=== PATIENT | female | born 1955 | race Caucasian/White ===

== ENCOUNTER 2022-09-06 11:11 | Outpatient (CLI) | payer MEDICARE, SELFPAY ==
[2022-09-06 20:37] LABS: Thyroid Stimulating Hormone Reflex 0.574 uIU/mL (0.465-4.68)
[2022-09-06 20:54] LABS: Alanine Aminotransferase 14 U/L (6-35); Albumin Level 4.3 g/dL (3.5-5.1); Alkaline Phosphatase 60 U/L (38-126); Anion Gap 6 mmol/L (8-16); Aspartate Amino Transferase 24 U/L (14-36); Bilirubin,Total 0.4 mg/dL (0.2-1.3); Blood Urea Nitrogen 12 mg/dL (7-17); Calcium 8.9 mg/dL (8.4-10.2); Carbon Dioxide 28 mmol/L (22-30); Chloride 106 mmol/L (98-107); Cholesterol 256 mg/dL (0-200); Estimated Glomerular Filt Rate > 60; Glucose 101 mg/dL (65-110); HDL Direct 68 mg/dL; Potassium 4.6 mmol/L (3.4-5.0); Sodium 140 mmol/L (137-145); Triglycerides 110 mg/dL (<150)
[2022-09-06 21:05] LABS: LDL Cholesterol Direct 143 mg/dL
== END 2022-09-06 11:12 | disposition home or self-care (01) ==
LOC: ANHGOSHLAB 11:13
PROVIDERS: PCP Family Medicine; Visit Provider Family Medicine
DX: Z13.228 Encounter for screening for other metabolic disorders (principal); E78.5 Hyperlipidemia, unspecified; Z13.29 Encounter for screening for other suspected endocrine disorder
CPT/HCPCS: 36415; 80053; 80061; 84443

== ENCOUNTER → 2022-10-14 10:48 | Outpatient (CLI) | payer MEDICARE, MEDICAID, SELFPAY ==
--- NOTE | ~2022-10-14 | DEXA_ITS ---
Bone Density Report Name: RODNEY MORROW Age: 67 Sex: Female Ethnicity: White Date of : 1955 Indication: postmenopausal; screening for osteoporosis; height loss; prior fracture; Referring Provider: SHANDA RUIZ Study: Bone densitometry was performed. Exam Date: October 14, 2022 Accession number: [id number] Bone Density: Region BMD T-score Z-score Classification AP Spine (L1-L4) 0.917 -1.2 0.7 Osteopenia Femoral Neck (Left) 0.686 -1.5 0.1 Osteopenia Total Hip (Left) 0.801 -1.2 0.1 Osteopenia Femoral Neck (Right) 0.606 -2.2 -0.6 Osteopenia Total Hip (Right) 0.794 -1.2 0.1 Osteopenia Total Hip Mean 0.798 -1.2 0.1 Osteopenia World Health Organization criteria for BMD impression classify patients as: Normal (T-score at or above -1.0), Osteopenia (T-score between -1.0 and -2.5), or Osteoporosis (T-score at or below -2.5). 10-year Fracture Risk(1): Major Osteoporotic Fracture 20% Hip Fracture 5.4% Reported Risk Factors: [place] (), Neck BMD=0.606, BMI=28.0, previous fracture, smoking (1) FRAX(R) Version 3.08. Fracture probability calculated for an untreated patient. Fracture probability may be lower if the patient has received treatment. Clinical Information Provided by Patient: Has had a low trauma fracture Smokes Has used the following medications: Vitamin D Patient maximum height was 62 Menopause Age: 42 No regular weight bearing exercise Does not regularly consume dairy products Drinks caffeinated beverages Onset of menses at age 12 Number of children 4 Impression: The patient has low bone mass, based on the Right Femoral Neck T-score. The patient has an estimated ten-year risk of hip fracture of 5.4% and an estimated ten-year risk of major fracture of 20%, based on the WHO FRAX algorithm. The patient has risk factors, including: smoking, previous fracture. Discussion: BONE DENSITY IS LOW AT ONE OR MORE SKELETAL SITES. THE PATIENT'S BMD AND CLINICAL RISK FACTORS CONTRIBUTE TO THIS PATIENT'S HIGH RISK OF FRACTURE. This patient's lowest T-score is low at one or more skeletal sites. It meets the World Health Organization's (WHO) criteria for ?low bone mass? (T-score between -1.0 and -2.5). The patient's 10-year risk of hip fracture and 10 year risk of a major osteoporotic fracture as calculated by FRAX exceeds the threshold where pharmacological therapy is recommended by the National Osteoporosis Foundation (NOF). However, all treatment decisions require clinical judgment and consideration of individual patient factors, including patient preferences, comorbidities, previous drug use, risk factors not captured in the FRAX model (e.g., frailty, falls, vitamin D deficiency, increased bone turnover, interval significant decline in bone density) and possible under or overe
--- NOTE | ~2022-10-14 | CT_ITS ---
EXAMINATION: CT lung screening DATE: 10/14/2022 11:26 INDICATION: Greater than 40 pack-year history. Personal history of tobacco dependence. TECHNIQUE: Computed tomography (CT) of the chest was performed without intravenous contrast. The dose -length product was 83.11 mGy-cm. Automated exposure control and iterative reconstruction technique w ere employed. COMPARISON: None FINDINGS: There is atherosclerosis of the aorta and coronary arteries. No thoracic lymphadenopathy. S mall hiatal hernia. No significant pleural or pericardial effusion. There is emphysema. There is a pl eural-based 8 mm right apical nodule. There is a 2 mm right upper lobe nodule. There is a 3 mm left l ower lobe nodule, image 73. There is a 3 mm fissural nodule on the right, image 63. There is a 2 mm n odule of the right upper lobe. There are 2 adjacent 3 mm nodules in the left lower lobe. Moderate tho racic spondylosis. There is a chronic superior endplate compression fracture of T11. No suspicious ly tic or blastic lesions. IMPRESSION: 1. Lung Rads category 4A, suspicious. Follow-up low dose CT chest in 3 months or PET/CT scan is recom mended. Reviewed, dictated and finalized at location A. R INSTALLER IMPRESSION: 1. Lung Rads category 4A, suspicious. Follow-up low dose CT chest in 3 months o r PET/CT scan is recommended.
== END ==
PROVIDERS: PCP Family Medicine; Visit Provider Family Medicine
DX: Z12.2 Encounter for screening for malignant neoplasm of respiratory organs (principal); M81.0 Age-related osteoporosis without current pathological fracture; Z87.891 Personal history of nicotine dependence; M85.88 Other specified disorders of bone density and structure, other site; M85.852 Other specified disorders of bone density and structure, left thigh; M85.851 Other specified disorders of bone density and structure, right thigh; R91.8 Other nonspecific abnormal finding of lung field
CPT/HCPCS: 71271; 77080

== ENCOUNTER 2023-01-26 11:46 | Outpatient (CLI) | payer MEDICARE, MEDICAID, SELFPAY ==
--- NOTE | ~2023-01-26 | PE_ITS ---
EXAMINATION: PET skull to mid thigh DATE: 01/26/2023 13:41 INDICATION: Solitary pulmonary nodule. TECHNIQUE: Blood glucose level was 111 mg/dL. 11.201 mCi of 18-fluorodeoxyglucose (18-FDG) was admini stered i.v. Low dose computed tomography (CT) images were acquired from the base of the brain to the proximal thighs for attenuation correction and anatomic localization. Automated exposure control was employed. Dose-length product (DLP) was 488 mGy-cm. Positron emission tomography (PET) images were ac quired in the same distribution. COMPARISON: Head CT 10/14/2022 FINDINGS: Head/neck: There are no pathologically enlarged lymph nodes. Chest: There is mild scarring at the lung apices without increased activity. There is mild emphysema. There are a few scattered nodules in the lungs measuring up to 3 mm without increased activity. No p leural effusion. The heart size is normal. No pericardial effusion. There are coronary artery calcifi cations. Abdomen/pelvis/proximal thighs: The liver is normal. There are gallstones in the gallbladder, which i s normal in size. The spleen, pancreas, adrenal glands, and kidneys are normal. There are no dilated loops of bowel. There is diverticulosis of the colon without evidence of diverticulitis. The appendix is normal. There is calcified atherosclerosis of the aorta and many of the other arteries. There are no pathologically enlarged lymph nodes. There is no free intraperitoneal fluid. There is a supraumbi lical ventral hernia containing fat. There is no osseous malignancy. IMPRESSION: 1. Lung-RADS category 2: Benign appearance or behavior. Continue annual screening with noncontrast lo w-dose chest CT in 12 months. Reviewed, dictated and finalized at location A. IMPRESSION: 1. Lung-RADS category 2: Benign appearance or behavior. Continue annual screeni ng with noncontrast low-dose chest CT in 12 months.
[2023-01-26 12:16] LABS: Glucose Point of Care 111 mg/dl (65-105)
== END 2023-01-26 11:47 | disposition home or self-care (01) ==
PROVIDERS: PCP Family Medicine; Visit Provider Family Medicine
DX: R91.1 Solitary pulmonary nodule (principal)
CPT/HCPCS: 78815; A9552

== ENCOUNTER 2023-10-19 11:21 | Outpatient (CLI) | payer MEDICARE, MEDICAID, SELFPAY ==
[2023-10-19 19:25] LABS: Basophils Percent Auto 0.6 % (0.2-1.2); Eosinophils Percent Auto 0.4 % (0-4.4); Hematocrit 44.4 % (37.0-47.0); Hemoglobin 13.9 g/dL (12.0-15.0); Immature Granulocyte Absolute 0.01 K/mm3 (0.00-0.031); Immature Granulocyte Percent A 0.1 % (0-0.5); Lymphocytes Absolute Auto 0.98 K/mm3 (0.9-3.2); Lymphocytes Percent Auto 14.5 % (18.3-44.2); Mean Corpuscular HGB Conc 31.3 g/dl (32-36); Mean Corpuscular Hemoglobin 29.4 pg (26-34); Mean Corpuscular Volume 94.1 fl (80-100); Mean Platelet Volume 9.9 fl (7.4-10.4); Monocytes Absolute Auto 0.5 K/mm3 (0.1-0.6); Monocytes Percent Auto 7.3 % (2.6-8.5); Neutrophils Absolute Auto 5.2 K/mm3 (1.3-6.7); Neutrophils Percent Auto 77.1 % (45.5-73.1); Platelet Count Result 317 k/mm3 (150-375); Red Blood Count 4.72 M/mm3 (4.2-5.4); Red Cell Distribution Width 12.8 % (11.5-14.5); White Blood Count 6.8 K/mm3 (4.5-10.0)
[2023-10-19 19:29] LABS: Alanine Aminotransferase 16 U/L (6-35); Albumin Level 4.5 g/dL (3.5-5.1); Alkaline Phosphatase 75 U/L (38-126); Anion Gap 8 mmol/L (8-16); Aspartate Amino Transferase 39 U/L (14-36); Bilirubin,Total 0.8 mg/dL (0.2-1.3); Blood Urea Nitrogen 8 mg/dL (7-17); Calcium 9.7 mg/dL (8.4-10.2); Carbon Dioxide 28 mmol/L (22-30); Chloride 101 mmol/L (98-107); Cholesterol 219 mg/dL (0-200); Estimated Glomerular Filt Rate > 60; Glucose 95 mg/dL (65-110); HDL Direct 69 mg/dL; Potassium 3.8 mmol/L (3.4-5.0); Sodium 137 mmol/L (137-145); Triglycerides 174 mg/dL (<150)
[2023-10-19 19:40] LABS: LDL Cholesterol Direct 113 mg/dL
[2023-10-19 19:54] LABS: Iron 117 ug/dL (37-170)
[2023-10-19 20:04] LABS: Percent Iron Saturation 36 % (20-50)
[2023-10-19 20:27] LABS: Thyroid Stimulating Hormone Reflex 0.389 uIU/mL (0.465-4.68)
[2023-10-19 22:03] LABS: Free T4 Free Thyroxine Reflex 1.23 ng/dL (0.78-2.19)
[2023-10-19 22:45] LABS: Total Triiodothyronine (T3) 1.26 NG/ML (0.97-1.69)
== END 2023-10-19 11:22 | disposition home or self-care (01) ==
LOC: ANHGOSHLAB 11:23
PROVIDERS: PCP Family Medicine; Visit Provider Family Medicine
DX: Z13.29 Encounter for screening for other suspected endocrine disorder (principal); Z13.220 Encounter for screening for lipoid disorders; E78.5 Hyperlipidemia, unspecified; Z13.228 Encounter for screening for other metabolic disorders; R53.83 Other fatigue; D64.9 Anemia, unspecified
CPT/HCPCS: 36415; 80053; 80061; 82728; 83540; 83550; 84439; 84443; 84480; 85025

== ENCOUNTER 2024-01-31 00:27 | Day surgery (SDC) | payer MEDICARE, MEDICAID, SELFPAY ==
[2024-01-18 13:13] VITALS: BMI 29.3
[2024-01-31 09:48] VITALS: BP 125/78; PULSE 90; RESP 18; TEMP 35.9; O2SAT 96
[2024-01-31] MEDS: LACTATED RINGERS 1,000 ML 150 ML IV CONT (10:01)
--- NOTE | 2024-01-31 10:35 | WPDANESEPPF ---
Anes - Initial Pre Proc Eval Procedure: Operation Date: 01/31/24 11:00 Proposed Procedures p Colonoscopy - Darwin Piña MD Date/Time: 01/31/24 10:35 Surgeon: Darwin Piña MD Pre Op Diagnosis: other fecal abnormalities Patient Data Age: 68 Gender: F Height: 1.55 m Weight: 66.8 kg Last Vital Signs Temp 96.7 F L 01/31/24 09:48 Pulse 90 01/31/24 09:48 Resp 18 01/31/24 09:48 BP 125/78 01/31/24 09:48 Pulse Ox 96 01/31/24 09:48 O2 Del Method Room Air 01/31/24 09:48 Allergies Allergy/AdvReac Type Severity Reaction Status Date / Time No Known Allergies Allergy Verified 01/31/24 09:47 Home Medications Medication Instructions Recorded Confirmed Type cariprazine 1.5 mg capsule 1.5 mg PO DAILY 09/06/22 01/18/24 History (Vraylar) calcium carbonate (Calcium 500) 1,200 mg PO DAILY 01/05/23 01/18/24 History pravastatin 80 mg tablet 80 mg PO DAILY #90 tabs 09/04/23 01/18/24 Rx lamotrigine 25 mg tablet 75 mg PO BID 10/19/23 01/18/24 History nitrofurantoin macrocrystal 100 mg 100 mg PO QHS #90 caps 10/19/23 01/18/24 Rx capsule paroxetine HCl 20 mg tablet (Paxil) 30 mg PO DAILY 10/19/23 01/18/24 History trazodone 100 mg tablet 200 mg PO HS PRN Insomnia 01/18/24 01/18/24 History Patient hx anesthesia problems: none Family hx anesthesia problems: none Results Review: All pre-operative results and documents have been reviewed as part of the pre-operative evaluation. [facility] Past Medical History Medical History Anxiety Arthritis COPD (chronic obstructive pulmonary disease) DDD (degenerative disc disease) DJD (degenerative joint disease) Major depressive disorder Surgical History Surgical History History of ankle surgery History of tonsillectomy Family History Family History Mother Diabetes mellitus Grandparent Diabetes mellitus Hypertension Heart disease Cerebrovascular accident Social History Social History Smoking status: Current every day smoker Tobacco type: e-cigarettes/vaping Alcohol intake: never Substance use: never Substance use type: does not use Lack of Transportation: No Lack of Food: Never True Current Housing: I Have Housing Concerned About Future Housing: No Difficulty Paying Gas/Electric Bills: No Difficulty Paying for Meds: No Education: High School Diploma/GED Difficulty w/ Childcare or Family Care: No Living arrangements: alone Occupation/Education: retired Gender identity (if verbalized by the patient): Female Sexual Orientation (if Verbalized by the Patient): Straight or Heterosexual Agree to blood products: Yes Anes - Eval Final PreProcedure Day of Procedure 01/31/24 10:35 Patient weight: normal Heart: regular rate and rhythm Lungs: clear to auscultation Airway: Mallampati scale class II Neurological: alert and oriented Last oral intake: >/= 8 hours ASA classification: III Emergent: no Anesthetic plan: proceed Anesthesia type and monitoring: general GIVS and standard monitoring Results Review: All pre-operative results and documents have been reviewed as part of the pre-operative evaluation. Informed Consent: The patient's anesthetic plan and its attendant risks and benefits were discussed with the patient/family/POA. Questions were solicited and answers provided to the satisfaction of the patient/family/POA.
--- NOTE | 2024-01-31 10:48 | PM.HPGS ---
History of Present Illness History of Present Illness Consent: Risks, benefits, and alternatives have been discussed and questions answered. Patient agrees to proceed with procedure. Chief complaint: other fecal abnormalities Narrative: Lottie Paz is a 68 year old female here for first colonoscopy, had + cologuard Review of Systems Review of Systems: All systems reviewed & are unremarkable except as noted in HPI and below PMFSH Past Medical History Medical History (Updated 01/31/24 @ 10:49 by Darwin Piña MD) Anxiety Arthritis COPD (chronic obstructive pulmonary disease) DDD (degenerative disc disease) DJD (degenerative joint disease) Major depressive disorder Positive colorectal cancer screening using Cologuard test Surgical History Surgical History History of ankle surgery History of tonsillectomy Family History Family History Mother Diabetes mellitus Grandparent Diabetes mellitus Hypertension Heart disease Cerebrovascular accident Social History Social History Smoking status: Current every day smoker Tobacco type: e-cigarettes/vaping Alcohol intake: never Substance use: never Substance use type: does not use Lack of Transportation: No Lack of Food: Never True Current Housing: I Have Housing Concerned About Future Housing: No Difficulty Paying Gas/Electric Bills: No Difficulty Paying for Meds: No Education: High School Diploma/GED Difficulty w/ Childcare or Family Care: No Living arrangements: alone Occupation/Education: retired Gender identity (if verbalized by the patient): Female Sexual Orientation (if Verbalized by the Patient): Straight or Heterosexual Agree to blood products: Yes Meds Home Medications and Allergies Home Medications Medication Instructions Recorded Confirmed Type cariprazine 1.5 mg capsule 1.5 mg PO DAILY 09/06/22 01/18/24 History (Vraylar) calcium carbonate (Calcium 500) 1,200 mg PO DAILY 01/05/23 01/18/24 History pravastatin 80 mg tablet 80 mg PO DAILY #90 tabs 09/04/23 01/18/24 Rx lamotrigine 25 mg tablet 75 mg PO BID 10/19/23 01/18/24 History nitrofurantoin macrocrystal 100 mg 100 mg PO QHS #90 caps 10/19/23 01/18/24 Rx capsule paroxetine HCl 20 mg tablet (Paxil) 30 mg PO DAILY 10/19/23 01/18/24 History trazodone 100 mg tablet 200 mg PO HS PRN Insomnia 01/18/24 01/18/24 History Allergies Allergy/AdvReac Type Severity Reaction Status Date / Time No Known Allergies Allergy Verified 01/31/24 09:47 Vital Signs Vital Signs - 24 hr 01/31/24 09:48 Temperature 96.7 F L Pulse Rate 90 Respiratory Rate 18 Blood Pressure 125/78 Pulse Oximetry 96 Oxygen Delivery Room Air Exam Const: General: comfortable and no acute distress HENMT: Face/Nose/Sinus: Normal nares present Eyes: General: appearance normal, both eyes and all related structures Neck: Neck: no JVD Resp: Auscultation: clear to auscultation bilaterally Cardio: Rate: regular rate Rhythm: regular rhythm GI: Inspection: non-distended GI Palp: Yes Soft to palpation Skin: General skin exam: normal color Neuro: General: gait normal Speech: normal speech Extrem: General: normal to inspection Psych: Mental Status: mental status grossly normal Assessment and Plan Assessment and plan (1) Positive colorectal cancer screening using Cologuard test: Code(s): R19.5 - Other fecal abnormalities Status: Acute Assessment and Plan: colonoscopy
[2024-01-31 11:46] VITALS: BP 116/77; PULSE 74; RESP 23; O2SAT 99
[2024-01-31 11:55] VITALS: BP 119/65; PULSE 80; RESP 21; O2SAT 98
[2024-01-31 12:05] VITALS: BP 141/78; PULSE 67; RESP 22; O2SAT 99
== END 2024-01-31 12:14 | disposition home or self-care (01) ==
PROVIDERS: PCP Family Medicine; Visit Provider Internal Medicine Gastroenterology
PROC: 0DJD8ZZ Inspection of Lower Intestinal Tract, Via Natural or Artificial Opening Endoscopic (ICD-10-PCS; CPT 45378; principal; 2024-01-31 11:00)
DX: D12.2 Benign neoplasm of ascending colon (principal); D12.3 Benign neoplasm of transverse colon; D12.4 Benign neoplasm of descending colon; D12.5 Benign neoplasm of sigmoid colon; K57.30 Diverticulosis of large intestine without perforation or abscess without bleeding; K64.8 Other hemorrhoids; J44.9 Chronic obstructive pulmonary disease, unspecified; F32.9 Major depressive disorder, single episode, unspecified; F41.9 Anxiety disorder, unspecified; F17.290 Nicotine dependence, other tobacco product, uncomplicated
CPT/HCPCS: 45381; 45385; 88305; J2704; J7120

== ENCOUNTER 2024-11-26 10:49 | Outpatient (CLI) | payer MEDICARE, MEDICAID, SELFPAY ==
--- OUTSIDE RECORDS SUMMARY | 2024-11-26 12:03 | XMS_ITS | Clinical Summary ---
Author Organization [facility] Address [address] [place] [id number] Care Team Providers Care Owner Operator Name Role Phone Unavailable Primary Care Provider Unavailabl e Social History Tobacco Use Types Packs/Day Years Used Date Smoking Tobacco: Never Assessed Comments Unknown Sex and Gender Information Value Date Recorded Sex Assigned at Not on file Legal Sex Female 5:35 PM CDT Gender Identity Not on file Sexual Orientation Not on file Plan of Treatment Health Maintenance Due Date Last Done Comments Colorectal Cancer Screening Colonoscopy (10 Years) 1955 Hepatitis C 1974 DTaP, Tdap and Td Vaccines ( 1 - Tdap) 1975 Mammogram Screening 1996 Zoster Vaccines (1 of 2) 2006 Dexa Scan (General) 2021 Pneumococcal Vaccine: 65+ Ye ars (1 of 1 - PCV) 2021 COVID-19 Vaccine (2023-2 5 season) 2024 Influenza Adult (#1) 2024 RSV Immunization or 60+ Years (1 - 1-dose 75+ series) 2031 Meningococcal B Vaccine Aged Out No l onger eligible based on patient's age to complete this topic Meningococcal Vaccine Aged Out No latrice ashley eligible based on patient's age to complete this topic RSV Immunizations Under 20 Months Aged Out No longer eligible based on patient's age to complete this topic
--- OUTSIDE RECORDS SUMMARY | 2024-11-26 12:03 | XMS_ITS | Clinical Summary ---
Author Organization [facility] Address [address] [place] [address] Care Team Providers Care Organizational Development Specialist Name Role Phone Mariah River MD Primary Care Prov ider Source Comments [facility],non-owned Affiliates and Associated Physician Practices is amultiple site organization consisting of ambulatory clinics and hospital sitesin [place], [place], [place] and [place]. This disclosure is being madepursuant to the Care Everywhere program and may not contain all information available regarding this patient. Last updated 18.[facility] Allergies No known active allergies Medications * Be aware that medications may not be up to date on this document. Alwaysverify current medications with the patient. Medication Sig Dispensed Refills Start Date End Date Status Cholecalciferol (VITAMIN D HIGH POTENCY PO) Take 2,000 Units by mouth Active ETODOLAC PO Active HYDROXYZINE HCL PO Active VENLAFAXINE HCL ER PO Act grace Tiotropium [place] Monohydrate (SPIRIVA RESPIMAT IN) Active Albuterol Sulfate (VENTOLIN HFA IN) Active fluticasone propionate (FLONASE) 50 MCG/ACT nasal sprayIndications:Dispatcher Relay tyson frontal sinusitis [employer] 2 Sprays into each nostril once daily 1 Bottle 1 06/15/2016 Active pregabalin (LYRICA) 300 MG capsule Take 300 mg by mouth 3 times daily Active meloxicam (MOBIC) 15 MG tablet Take 15 mg by mouth once daily Active ARIPiprazole (ABILIFY PO) Active Docusate Sodium (COLACE PO) Active polyethylene glycol 3350 (MIRALAX) powder Take 17 g by mouth once daily Active pravastatin (PRAVACHOL) 80 MG tablet Take 80 mg by mouth at bedtime Active benzonatate (TESSALON) 200 MG capsule Take 1 capsule by mouth 3 times daily as needed for Cough 30 capsule 07/19/2019 Active Active Problems Problem Noted Date Diagnosed Date Shoulder pain, left 11/17/2015 Social History Tobacco Use Types Packs/Day Years Used Date Smoking Tobacco: Some Days Smokeless Tobacco: Never Sex and Gender Information Value Date Recorded Sex Assigned at Not on file Gender Identity Not on file Sexual Orientation Not on file Last Filed Vital Signs Vital Sign Reading Time Taken Comments Blood Pressure 122/72 08/02/2019 5:44 PM SERVICE MANAGER Pulse 90 08/02/2019 5:44 PM SERVICE MANAGER Temperature 37.1 C (98.7 F) 08/02/2019 5:44 PM SERVICE MANAGER Respiratory Rate 16 08/02/2019 5:44 PM SERVICE MANAGER Oxygen Saturation 98% 08/02/2019 5:44 PM SERVICE MANAGER Inhaled Oxygen Concentration - - Weight 72.6 kg (160 lb) 08/02/2019 5:44 PM SERVICE MANAGER Height 157.5 cm (5' 2 ) 08/02/2019 5:44 PM SERVICE MANAGER Body Mass Index 29.26 08/02/2019 5:44 PM SERVICE MANAGER Plan of Treatment Health Maintenance Due Date Last Done Comments BONE DENSITY TESTING 1955 COLOGUARD (AGES 45-75) - COL ON CA SCREENING 1955 COLON MONITORING 1955 COLONOSCOPY - COLON CA SCREENING 1956 CT COLONOGRAPHY - COLON CA SCREENING 1955 Colorectal Cancer Screening 1955 FIT - COLON CA SCREENING 1955 FLEX SIG - COLON CA SCREENING 1955 MAMMOGRAM 1955 HEPATITIS C SCREENING 04/13/1974 DTAP/TDAP/TD VACCINES (1 - Tdap) 1975 PNEUMOCOCCAL VACCINE 50+ (1 of 2 - PCV) 1975 ZOSTER VACCINE (1 of 2) 2006 SCREENING FOR DIABETES 08/08/2018 COVID-19 VACCINE ( - 2023-2 5 season) 2024 INFLUENZA VACCINE (#1) 2024 DEPRESSION SCREENING 08/28/2024 MEDICARE AWV CALENDAR YEAR 2024 Respiratory Syncytial Virus (RSV) Vaccine Pt: or over 60 yrs (1 - 1-dose 75+ series) 2031 HEPATITIS B VACCINE Aged Out No longe r eligible based on patient's age to complete this topic HIB VACCINE Aged Out No longer eligi ble based on patient's age to complete this topic HPV VACCINE Aged Out No longer eligi ble based on patient's age to complete this topic MENINGOCOCCAL (Group B) VACC INE SHARED DECISION-MAKING Aged Out No longer eligibl e based on patient's age to complete this topic MENINGOCOCCAL GROUPS A/C/Y/W VACCINE Aged Out No longer eligible b ased on patient's age to complete this topic Care Teams Organizational Development Specialist Relationship Specialty Start Date End Date Mariah River MD PCP - General Student Resident 11/16/15
--- OUTSIDE RECORDS SUMMARY | 2024-11-26 12:03 | XMS_ITS ---
Author Name [facility] Address [address] [place], [place] Phone Organization [facility] Address [address] [place] [address] Phone Care Team Providers Care Rotary Furnace Tender Name Role Phone [facility] Unavailable [phone] YARED RAGLAND Unavailable WOODYCANDIDO Unavailable CALEB GRAY Unavailable ALLERGIES, ADVERSE REACTIONS AND ALERTS Allergy Name Allergy Date Allergy Status Allergy Severity Allergy Reaction NO KNOWN DRUG ALLERGIES MEDICATIONS RxNorm Brand Name Prescription Ordered Value Order Unit Start Date Date Status Fill Status Indications [id number] Vraylar 3 mg capsule SIG: Vraylar 3 mg oral capsule, 0 days, Dispense #1 Capsule, 0 Refills, Directions: DIRECTED 1 capsule 2022 Current [id number] pravasta tin 10 mg tablet SIG: pravastatin 10 mg oral tablet, 0 days, Dispense #1 Tablet, 0 Refills, Directions: DIRECTED 1 tablet 2022 Current [id number] amitript yline 10 mg tablet SIG: amitriptyline 10 mg oral tablet, 0 days, Dispense #1 Tablet, 0 Refills, Directions: DIRECTED 1 tablet 2022 Current Actical capsule SIG: Actical oral capsule, 0 days, Dispense #1 Capsule, 0 Refills, Directions: DIRECTED 1 capsule 2022 Current [id number] Flonase Allergy Relief 50 mcg/actu ation spray,saab spension SIG: Flonase Allergy Relief 50 mcg/actuation nasal spray,suspensi on, 0 days, Dispense #9.9 Milliliter, 0 Refills, Directions: DIRECTED 9.9 spray,s uspensi on 2022 Current [id number] Cholecal DF 95 mcg (3,800 unit)-1 mg tablet SIG: Cholecal DF 95 mcg (3,800 unit)-1 mg oral tablet, 0 days, Dispense #1 Tablet, 0 Refills, Directions: DIRECTED 1 tablet 2022 Current [id number] cephalex in 500 mg capsule SIG: cephalexin 500 mg oral capsule, 7 days, Dispense #14 Capsule, 0 RefillsDirecti ons: Take 1 oral capsule 2 times a day 14 capsule 2022 023 Historic [id number] ciproflo xacin-de xamethas one 0.3-0.1 % drops,saab spension SIG: ciprofloxacin- dexamethasone 0.3-0.1 % otic (ear) drops,suspensi on, 7 days, Dispense #1 Milliliter, 0 RefillsDirecti ons: 4 drops R ear 2 times a day 1 drops,s uspensi on 2022 023 Historic [id number] naproxen 500 mg tablet SIG: naproxen 500 mg oral tablet, 10 days, Dispense #20 Tablet, 0 RefillsDirecti ons: Take 1 oral tablet 2 times a day 20 tablet 2022 023 Historic [id number] polymyxi n B sulf-tri methopri m 10,000 unit- 1 mg/mL drops SIG: polymyxin B sulf-trimethop rim 10,000 unit- 1 mg/mL ophthalmic (eye) drops, 0 days, Dispense #10 Milliliter, 0 Refills, Directions: 1 drop R ear every 3 hours while awake 10 drops 2022 Current [id number] ofloxaci n 0.3 % drops SIG: ofloxacin 0.3 % otic (ear) drops, 7 days, Dispense #30 Milliliter, 0 RefillsDirecti ons: instill 10 drops daily x 7 days to affected ear 30 drops 2022 Current [id number] cephalex in 500 mg capsule SIG: cephalexin 500 mg oral capsule, 7 days, Dispense #14 Capsule, 0 RefillsDirecti ons: Take 1 oral capsule 2 times a day 14 capsule 2022 023 Historic [id number] phenazop yridine 200 mg tablet SIG: phenazopyridin e 200 mg oral tablet, 7 days, Dispense #21 Tablet, 0 RefillsDirecti ons: Take 1 oral tablet 3 times a day 21 tablet 2022 023 Historic [id number] sulfamet hoxazole -trimeth oprim 800-160 mg tablet SIG: sulfamethoxazo le-trimethopri m 800-160 mg oral tablet, 7 days, Dispense #14 Tablet, 0 RefillsDirecti ons: Take 1 oral tablet 2 times a day X 7 days 14 tablet 2022 Current [id number] amoxicil ava 875 mg tablet SIG: amoxicillin 875 mg oral tablet, 7 days, Dispense #14 Tablet, 0 RefillsDirecti ons: Take 1 oral tablet 2 times a day 14 tablet 2022 Current [id number] clindamy mehran HCl 150 mg capsule SIG: clindamycin HCl 150 mg oral capsule, 7 days, Dispense #42 Capsule, 0 RefillsDirecti ons: Take 2 oral capsules 3 times a day 42 capsule 2022 024 Historic [id number] neomycin -polymyx in-HC 3.5-10,0 00-1 mg/mL-un it/mL-% drops,saab spension SIG: neomycin-polym yxin-HC 3.5-10,000-1 mg/mL-unit/mL- % otic (ear) drops,suspensi on, 7 days, Dispense #10 Milliliter, 0 RefillsDirecti ons: 1 drop L ear every 3 hours while awake 10 drops,s uspensi on 2022 024 Historic [id number] Macrobid 100 mg capsule SIG: Macrobid 100 mg oral capsule, 7 days, Dispense #14 Capsule, 0 RefillsDirecti ons: Take 1 oral capsule 2 times a day 14 capsule 2023 Current [id number] ofloxaci n 0.3 % drops SIG: ofloxacin 0.3 % ophthalmic (eye) drops, 7 days, Dispense #10 Milliliter, 0 Refills, Directions: 2 drops right eye 4 times a day 10 drops 2023 024 Historic [id number] Cipro 500 mg tablet SIG: Cipro 500 mg oral tablet, 5 days, Dispense #10 Tablet, 0 Refills, Directions: Take 1 oral tablet 2 times a day 10 tablet 2023 024 Historic [id number] cephalex in 500 mg capsule SIG: cephalexin 500 mg oral capsule, 7 days, Dispense #14 Capsule, 0 Refills, Directions: Take 1 oral capsule 2 times a day 14 capsule 2023 024 Historic PROBLEMS Problem Code Problem Description Problem Status Problem Da te Problem End Date [id number]-Oijbd anxiety and depressive disorder Mixed anxiety and depressive disorder Current 12/23/2022 [id number]-Ysfcjdbus esterolemia Hypercholesterolemia Current 12/23/2022 [id number]-Kxcryfio Insomnia Current 12/23/2022 [id number]-Lmnbdo of lung Nodule of lung Current 12/23/2022 [id number]-Yinufptg ctomy Tonsillectomy Current 08/17/2023 [id number]-Njcdpzi obstructive lung disease Chronic obstructive lung disease Current 08/17/2023 [id number]-Fxztrjcmi py Colonoscopy Current 02/11/2024 PROCEDURES Procedure Description Date Notes NO PROCEDURES PERFORMED ASSESSMENTS Assessment None PLAN OF TREATMENT Assessment Planned Activity LOINC Planned Renaldo e None CONSULTATION NOTE Note Author Date None HISTORY AND PHYSICAL NOTE Note Author Date None PROGRESS NOTE Note Author Date None DISCHARGE SUMMARY Note Author Date None CHIEF COMPLAINT AND REASON FOR VISIT FUNCTIONAL STATUS Functional or Cognitive Find ing None MENTAL STATUS Cognitive Finding None ENCOUNTERS Encounter Type Provider Diagnoses Start Date Location None SOCIAL HISTORY Social Status Observation Current Regular Smoker Sex:Female CARE TEAM INFORMATION Rotary Furnace Tender Provider ID Role Location Phone [facility] [address], [place], [place] YARED RAGLAND [phone] NURSE PRACTITIONER [facility], [place] [address] CANDIDO MCKAY [phone] NURSE PRACTITIONER [facility], [place] [address] CALEB GRAY [phone] NURSE PRACTITIONER [address], [place] [address]
--- OUTSIDE RECORDS SUMMARY | 2024-11-26 12:03 | XMS_ITS | CONTINUITY OF CARE DOCUMENT ---
Author Name maxx birgitjorge Address Unknown Organization [facility] Address [address] [place] [address] Phone [phone] Care Team Providers Care Camp Nurse Name Role Phone Anshu Hammer MD Unavailable [phone] STEPHANIE PERALTA DO Unavailable TIM SETH MD Unavailable PROBLEMS Condition Status Date Provider Notes EKG active Anshu Hammer MD Family History of Hypertension: active Judith Hammer MD Family History of CVA or Stroke: active Soledad Hammer MD Family History of Hypertension: active Judith Hammer MD Prediabetes active Anshu Hammer MD Hyperlipidemia active Anshu Hammer MD Tobacco abuse active Anshu Hammer MD COPD active Anshu Hammer MD Chronic pain active Anshu Hammer MD Chronic UTI active Anshu Hammer MD Edema, ankles, lateral surface of R ankle active 04/02 Anshu Hammer MD ENCOUNTERS Date Type Provider Location Encounter Diag nosis - In-person encounter Office Visit Anshu Hammer MD [facility] Edema, ankles, lateral surface of R ankle - In-person encounter Office Visit Anshu Hammer MD [facility] EKGFamily History of Hypertension:Family History of CVA or Stroke:Family History of Hypertension:Prediabetes HyperlipidemiaTobacco abuseCOPDChronic painChronic UTIEdema, ankles, lateral surface of R ankle VITAL SIGNS Date Observation Value Provider Body Mass Index (Ratio) 26.70 kg/m2 Judith Hammer MD respiratory rate E&M 16 /min Angie Noonan blood pressure, diastolic 81 mm[Hg] Cy caridad Noonan blood pressure, systolic 132 mm[Hg] Anum devanmark Noonan blood pressure, cuff size regular Cy ana liliamark Noonan oxygen saturation, oximetry 95 % Angie Noonan pulse rate 98 /min Angie Howardthomas ignacio weight E&M 146 [lb_av] Angiekanu Dupree height E&M 62 [in_i] Angie [facility] ignacio Body Mass Index (Ratio) 26.52 kg/m2 Judith Hammer MD blood pressure, diastolic 77 mm[Hg] To nsha Simons blood pressure, systolic 122 mm[Hg] Ton [facility] oxygen saturation, oximetry 98 % [facility] respiratory rate E&M 18 /min [facility] 103 [facility] weight E&M 145 [lb_av] [facility] height E&M 62 [in_i] [facility] blood pressure, resting No Tons julio Simons ALLERGIES No Known Drug Allergies HISTORY OF MEDICATION USE Medication Status Instructions Dates Provider Indications Com ments FLUOXETINE HCL 20 MG ORAL TABLET active take 1 tab at bedtime Angie Noonan GABAPENTIN 300 MG ORAL CAPSULE active take 1 tab at bedtime Angie Noonan TIZANIDINE HCL 4 MG ORAL TABLET active one tab daily Gertrudisnori Simons #90, 30 days supply, Filled 11/06/2019 PRAVASTATIN SODIUM 80 MG ORAL TABLET active one tab daily [facility] Simons #90, 90 days supply, Filled 12/06/2019 HYDROXYZINE HCL 25 MG ORAL TABLET active one tab daily Gloria Simons #30, 15 days supply, Filled 12/09/2019 ARIPIPRAZOLE 5 MG ORAL TABLET active one tab daily Gloria Simnos #30, 30 days supply, Filled 12/31/2019 SPIRIVA HANDIHALER 18 MCG INHALATION CAPSULE active Gloria Simons #30, 30 days supply, Filled 01/02/2020 TERBINAFINE HCL 250 MG ORAL TABLET active TK 1 T PO D Gloria Simons #42, 42 days supply, Prescribed by GUILLE DENNY, Filled 02/14/2020 VENLAFAXINE HCL ER 150 MG ORAL CAPSULE EXTENDED RELEASE 24 HOUR completed TAKE ONE CAPSULE BY MOUTH EVERY MORNING - Angie Noonan #30, 30 days supply, Prescribed by EUGENIA HARDY, Filled 03/10/2020 MELOXICAM 15 MG ORAL TABLET active TAKE ONE TABLET BY MOUTH ONCE DAILY Gloria Simons #30, 30 days supply, Prescribed by EUGENIA HARDY, Filled 03/10/2020 FLUTICASONE PROPIONATE 50 MCG/ACT NASAL SUSPENSION active SPRAY 2 SPRAYS INTO EACH NOSTRIL ONCE A DAY Gloria Simons #16, 30 days supply, Prescribed by EUGENIA HARDY, Filled 03/10/2020 DOXYCYCLINE MONOHYDRATE 100 MG ORAL CAPSULE active TAKE 1 CAPSULE BY MOUTH TWICE A DAY DIRECTED FOR 10 DAYS Gloria Simons #20, 10 days supply, Prescribed by SHANDA FULLER, Filled 03/12/2020 CEPHALEXIN 500 MG ORAL CAPSULE active TAKE 1 C BY ORAL [address] [place] 12 HOURS FOR 10 DAYS Gloria Simons #20, 5 days supply, Prescribed by MELLY CONNOLLY, Filled 03/18/2020 TRAMADOL HCL 50 MG ORAL TABLET active TAKE 1 TABLET BY MOUTH EVERY 6 HOURS NEEDED FOR PAIN Gloria Simons #30, 8 days supply, Prescribed by SHANDA FULLER, Filled 03/19/2020 BUSPIRONE HCL 15 MG ORAL TABLET active Gloria Simons #60, 30 days supply, Filled 03/25/2020 TRIAMCINOLONE ACETONIDE 0.025 % EXTERNAL OINTMENT active APPLY A THIN COAT TO THE AFFECTED AREA(S) TWICE A DAY Gloria Simons #15, 30 days supply, Prescribed by BRIANNE SETH, Filled 03/25/2020 MUPIROCIN 2 % EXTERNAL OINTMENT active apply twice daily Gloria Simons #22, 10 days supply, Filled 03/27/2020 SOCIAL HISTORY Date Observation Value Provider smoking/tobacco cess ation, patient education and counseling yes Anshu Hammer MD smoking status Current every day smoker U leanne Hammer MD social history E&M S moking History: P atient currently smokes every day. P atient has been counseled to quit. Anshu Hammer MD social history reviewed E&M revi ewed - no changes required Anshu Hammer MD smoking history, tot al pack/year 365 Angie Noonan smoking history, total pack/day 1 Angie Noonan cigarette use yes Angie garcia social history E&M S moking History: P atient currently smokes every day. P atient has been counseled to quit. Anshu Hammer MD social history reviewed E&M revi ewed - no changes required Anshu Hammer MD smoking/tobacco cess ation, patient education and counseling yes Anshu Hammer MD number of grandchildren Anshu Hammer MD U leanne Hammer MD smoking history, total pack/day 1 Tonsha Simons smoking history, tot al pack/year 365 Tonsha Simons cigarette use yes Tonsha Simons smoking status Current every day smoker T onsha Simons FAMILY HISTORY Family Member Condition Father Family History Unkno wn Maternal Grandmother Family History of C VA or Stroke: Mother Family History of Di abetes: Maternal Grandmother Family History of H ypertension: INSURANCE PROVIDERS Payer name Policy type / Coverage type Venetie red green party ID [facility] [facility] FAMILY [facility] Medicaid 1 [id number] [place] MED[place] Medicare [id number] ADVANCE DIRECTIVES Name Date DISCUSSED - NO DECISION MADE TREATMENT PLAN Date Name Performer Cardiology FOLLOW UP :The Patient was reencouraged to stop smoking. Anshu Hammer MD Cardiology FOLLOW UP :Very localized. DANDRE and Venous US were completly normal. Advised patient to continue to try to stop smoking and to take Gabapentin. There is no further need for testing. However will see her in 6 months to make sure nothing new occurs Anshu Hammer MD Cardiology FOLLOW UP : H er updated medication list for this problem includes: Pravastatin Sodium 80 Mg Oral Tablet (Pravastatin sodium) ..... One tab daily Anshu Hammer MD Cardiology FOLLOW UP Anshu cervantes MD Cardiology Anshu Hammer MD Cardiology:The Patie nt was reencouraged to stop smoking. Anshu Hammer MD Cardiology: H er updated medication list for this problem includes: Pravastatin Sodium 80 Mg Oral Tablet (Pravastatin sodium) ..... One tab daily Anshu Hammer MD Cardiology:swelling is localized on dorsal surface of R foot. Will obtain echo, DANDRE, standing Venous US. I have advised that she continue to wear compression when she can tolerate it. Anshu Hammer MD Date Name Venous Doppler Bilat eral LE - Reflux Arterial Duplex Bi-L ower EX Complete Echo HISTORY OF PROCEDURES Procedure Date Procedure Name Provider Procedure Notes S tatus EKG Anshu Hammer MD completed
[2024-11-26 14:02] LABS: Hemoglobin 12.9 g/dL (12.0-15.0); Mean Corpuscular HGB Conc 32.3 g/dl (32-36); Mean Corpuscular Hemoglobin 29.3 pg (26-34); Mean Corpuscular Volume 90.9 fl (80-100); Mean Platelet Volume 9.9 fl (7.4-10.4); Platelet Count Result 299 k/mm3 (150-375); Red Cell Distribution Width 13.2 % (11.5-14.5); White Blood Count 6.3 K/mm3 (4.5-10.0)
[2024-11-26 14:30] LABS: Alanine Aminotransferase 18 U/L (6-35); Albumin Level 4.2 g/dL (3.5-5.1); Alkaline Phosphatase 69 U/L (38-126); Anion Gap 8 mmol/L (4-12); Aspartate Amino Transferase 36 U/L (14-36); Bilirubin,Total 0.3 mg/dL (0.2-1.3); Blood Urea Nitrogen 14 mg/dL (7-17); Calcium 9.5 mg/dL (8.4-10.2); Carbon Dioxide 29 mmol/L (22-30); Chloride 99 mmol/L (98-107); Cholesterol 244 mg/dL (0-200); Estimated Glomerular Filt Rate > 60; Glucose 125 mg/dL (65-110); HDL Direct 61 mg/dL; Potassium 4.5 mmol/L (3.4-5.0); Sodium 136 mmol/L (137-145); Triglycerides 167 mg/dL (<150)
[2024-11-26 14:41] LABS: LDL Cholesterol Direct 134 mg/dL
[2024-11-26 14:58] LABS: Thyroid Stimulating Hormone 0.872 uIU/mL (0.465-4.680)
[2024-11-26 17:43] LABS: Hemoglobin A1C 6.3 % (<5.7)
== END 2024-11-26 10:50 | disposition home or self-care (01) ==
PROVIDERS: PCP Family Medicine; Visit Provider Family Medicine
DX: E78.5 Hyperlipidemia, unspecified (principal); R73.09 Other abnormal glucose; Z79.899 Other long term (current) drug therapy; E66.9 Obesity, unspecified; R53.83 Other fatigue
CPT/HCPCS: 36415; 80053; 80061; 83036; 84443; 85027

== ENCOUNTER 2025-03-20 10:35 | Outpatient (CLI) | payer MEDICARE, MEDICAID, SELFPAY ==
--- OUTSIDE RECORDS SUMMARY | 2025-03-20 10:39 | XMS_ITS | Clinical Summary ---
Author Organization [facility] Address [address] [place] [address] Care Team Providers Care Deputy Prosecuting Attorney Name Role Phone Unavailable Primary Care Provider [...] 1 - Tdap) 1975 Mammogram Screening 1996 Pneumococcal Vaccine: 50+ Ye ars (1 of 1 - PCV) 2006 Zoster Vaccines (1 of 2) 2006 Dexa Scan (General) 2021 COVID-19 Vaccine (2023-2 5 season) 2024 RSV Immunization or 60+ Years (1 [...]
--- OUTSIDE RECORDS SUMMARY | 2025-03-20 10:39 | XMS_ITS ---
Author Name [facility] Address [address] [place], [place] Phone Organization [facility] Address [address] [place] [address] Phone Care Team Providers Care Edge Dyer Name Role Phone [facility] Unavailable [phone] YARED RAGLAND Unavailable WOODYCANDIDO Unavailable CALEB GRAY Unavailable ALLERGIES, ADVERSE REACTIONS AND ALERTS Allergy Name Allergy Date Allergy Status Allergy Severity Allergy Reaction NO KNOWN DRUG ALLERGIES MEDICATIONS RxNorm Brand Name Prescription Ordered Value Order Unit Start Date Date Status Fill Status Indications [id number] Vraylar 3 mg capsule SIG: Vraylar 3 mg oral capsule, 0 days, Dispense #1 Capsule, 0 Refills, Directions: DIRECTED 1 capsule 2022 Current [id number] pravasta tin 10 mg tablet SIG: pravastatin 10 mg oral tablet, 0 days, Dispense #1 Tablet, 0 Refills, Directions: DIRECTED 1 tablet 2022 Current [id number] amitript yline 10 mg tablet SIG: amitriptyline 10 mg oral tablet, 0 days, Dispense #1 Tablet, 0 Refills, Directions: DIRECTED 1 tablet 2022 Current Actical capsule SIG: Actical oral capsule, 0 days, Dispense #1 Capsule, 0 Refills, Directions: DIRECTED 1 capsule 2022 Current [id number] Flonase Allergy Relief 50 mcg/actu ation spray,saab spension SIG: Flonase Allergy Relief 50 mcg/actuation nasal spray,suspensi on, 0 days, Dispense #9.9 Milliliter, 0 Refills, Directions: DIRECTED 9.9 spray,s uspensi on 2022 Current [id number] Cholecal DF 95 mcg (3,800 unit)-1 mg tablet SIG: Cholecal DF 95 mcg (3,800 unit)-1 mg oral tablet, 0 days, Dispense #1 Tablet, 0 Refills, Directions: DIRECTED 1 tablet 2022 Current [id number] cephalex in 500 mg capsule SIG: cephalexin 500 mg oral capsule, 7 days, Dispense #14 Capsule, 0 RefillsDirecti ons: Take 1 oral capsule 2 times a day 14 capsule 2022 023 Historic [id number] ciproflo xacin-de xamethas one 0.3-0.1 % drops,saab spension SIG: ciprofloxacin- dexamethasone 0.3-0.1 % otic (ear) drops,suspensi on, 7 days, Dispense #1 Milliliter, 0 RefillsDirecti ons: 4 drops R ear 2 times a day 1 drops,s uspensi on 2022 023 Historic [id number] naproxen 500 mg tablet SIG: naproxen 500 mg oral tablet, 10 days, Dispense #20 Tablet, 0 RefillsDirecti ons: Take 1 oral tablet 2 times a day 20 tablet 2022 023 Historic [id number] polymyxi n B sulf-tri methopri m 10,000 unit- 1 mg/mL drops SIG: polymyxin B sulf-trimethop rim 10,000 unit- 1 mg/mL ophthalmic (eye) drops, 0 days, Dispense #10 Milliliter, 0 Refills, Directions: 1 drop R ear every 3 hours while awake 10 drops 2022 Current [id number] ofloxaci n 0.3 % drops SIG: ofloxacin 0.3 % otic (ear) drops, 7 days, Dispense #30 Milliliter, 0 RefillsDirecti ons: instill 10 drops daily x 7 days to affected ear 30 drops 2022 Current [id number] cephalex in 500 mg capsule SIG: cephalexin 500 mg oral capsule, 7 days, Dispense #14 Capsule, 0 RefillsDirecti ons: Take 1 oral capsule 2 times a day 14 capsule 2022 023 Historic [id number] phenazop yridine 200 mg tablet SIG: phenazopyridin e 200 mg oral tablet, 7 days, Dispense #21 Tablet, 0 RefillsDirecti ons: Take 1 oral tablet 3 times a day 21 tablet 2022 023 Historic [id number] sulfamet hoxazole -trimeth oprim 800-160 mg tablet SIG: sulfamethoxazo le-trimethopri m 800-160 mg oral tablet, 7 days, Dispense #14 Tablet, 0 RefillsDirecti ons: Take 1 oral tablet 2 times a day X 7 days 14 tablet 2022 Current [id number] amoxicil ava 875 mg tablet SIG: amoxicillin 875 mg oral tablet, 7 days, Dispense #14 Tablet, 0 RefillsDirecti ons: Take 1 oral tablet 2 times a day 14 tablet 2022 Current [id number] clindamy meharn HCl 150 mg capsule SIG: clindamycin HCl 150 mg oral capsule, 7 days, Dispense #42 Capsule, 0 RefillsDirecti ons: Take 2 oral capsules 3 times a day 42 capsule 2022 024 Historic [id number] neomycin -polymyx in-HC 3.5-10,0 00-1 mg/mL-un it/mL-% drops,saab spension SIG: neomycin-polym yxin-HC 3.5-10,000-1 mg/mL-unit/mL- % otic (ear) drops,suspensi on, 7 days, Dispense #10 Milliliter, 0 RefillsDirecti ons: 1 drop L ear every 3 hours while awake 10 drops,s uspensi on 2022 024 Historic [id number] Macrobid 100 mg capsule SIG: Macrobid 100 mg oral capsule, 7 days, Dispense #14 Capsule, 0 RefillsDirecti ons: Take 1 oral capsule 2 times a day 14 capsule 2023 Current [id number] ofloxaci n 0.3 % drops SIG: ofloxacin 0.3 % ophthalmic (eye) drops, 7 days, Dispense #10 Milliliter, 0 Refills, Directions: 2 drops right eye 4 times a day 10 drops 2023 024 Historic [id number] Cipro 500 mg tablet SIG: Cipro 500 mg oral tablet, 5 days, Dispense #10 Tablet, 0 Refills, Directions: Take 1 oral tablet 2 times a day 10 tablet 2023 024 Historic [id number] cephalex in 500 mg capsule SIG: cephalexin 500 mg oral capsule, 7 days, Dispense #14 Capsule, 0 Refills, Directions: Take 1 oral capsule 2 times a day 14 capsule 2023 024 Historic [id number] Medrol (Cedrick) 4 mg tablets, dose pack SIG: Medrol (Cedrick) 4 mg oral tablets,dose pack, 0 days, Dispense #21 Tablet, 0 Refills, Directions: Take as directed on package 21 tablets ,dose pack 2024 Current [id number] Zithroma x Z-Cedrick 250 mg tablet SIG: Zithromax Z-Cedrick 250 mg oral tablet, 0 days, Dispense #6 Tablet, 0 Refills, Directions: Take as directed on package 6 tablet 2024 Current [id number] Flonase Allergy Relief 50 mcg/actu ation spray,saab spension SIG: Flonase Allergy Relief 50 mcg/actuation nasal spray,suspensi on, 0 days, Dispense #11.1 Milliliter, 0 Refills, Directions: 1 spray in each nostril every night before bed 11.1 spray,s uspensi on 2024 Current [id number] Zyrtec 10 mg tablet SIG: Zyrtec 10 mg oral tablet, 30 days, Dispense #30 Tablet, 0 Refills, Directions: Take 1 oral tablet once a day 30 tablet 2024 Current [id number] CETIRIZI NE HCL 10 MG TABLET 10 mg tablet SIG: CETIRIZINE HCL 10 MG TABLET, Dispense #30, 0 Refills, Directions: TAKE 1 TABLET BY MOUTH EVERY DAY 30 tablet 2024 Historic PROBLEMS Problem Code Problem Description Problem Status Problem Da te Problem End Date [id number]-Bdtkz anxiety and depressive disorder Mixed anxiety and depressive disorder Current 12/23/2022 [id number]-Fssgrfrrh esterolemia Hypercholesterolemia Current 12/23/2022 [id number]-Lsmewsjv Insomnia Current 12/23/2022 844191725-Ycqpxt of lung Nodule of lung Current 12/23/2022 571643337-Oxemxafp ctomy Tonsillectomy Current 08/17/2023 [id number]-Jjthyth obstructive lung disease Chronic obstructive lung disease Current 08/17/2023 [id number]-Axyhzwbaj py Colonoscopy Current 02/11/2024 PROCEDURES Procedure Description [...] Encounter Type Provider Diagnoses Start Date Location Disc harged to None SOCIAL HISTORY Social Status Observation Current Regular Smoker Sex: Female CARE TEAM INFORMATION Edge Dyer Provider ID Role Location Phone [facility] [address] [place] YARED RAGLAND [phone] NURSE PRACTITIONER [address] [place] [address] CANDIDO MCKAY [phone] NURSE PRACTITIONER [address] [place] [address] CALEB GRAY [phone] NURSE PRACTITIONER [address] [place] [address] INSURANCE PROVIDERS Payer Name Policy type / Coverage type Covered green party ID Policy [place] Medicaid [id number] [facility] Private Health Insurance [id number] MANOJ Do
[2025-03-20 13:09] LABS: Alanine Aminotransferase 16 U/L (6-35); Albumin Level 4.3 g/dL (3.5-5.1); Alkaline Phosphatase 65 U/L (38-126); Anion Gap 8 mmol/L (4-12); Aspartate Amino Transferase 32 U/L (14-36); Bilirubin,Total 0.5 mg/dL (0.2-1.3); Blood Urea Nitrogen 10 mg/dL (7-17); Calcium 9.6 mg/dL (8.4-10.2); Carbon Dioxide 26 mmol/L (22-30); Chloride 101 mmol/L (98-107); Cholesterol 212 mg/dL (0-200); Estimated Glomerular Filt Rate > 60; Glucose 126 mg/dL (65-110); HDL Direct 58 mg/dL; Potassium 4.1 mmol/L (3.4-5.0); Sodium 135 mmol/L (137-145); Total Protein 7.1 g/dL (6.3-8.2); Triglycerides 122 mg/dL (<150)
[2025-03-20 13:12] LABS: Hematocrit 39.7 % (37.0-47.0); Hemoglobin 12.8 g/dL (12.0-15.0); Mean Corpuscular HGB Conc 32.2 g/dl (32-36); Mean Corpuscular Hemoglobin 29.0 pg (26-34); Mean Corpuscular Volume 90.0 fl (80-100); Platelet Count Result 286 k/mm3 (150-375); Red Blood Count 4.41 M/mm3 (4.2-5.4); White Blood Count 5.5 K/mm3 (4.5-10.0)
[2025-03-20 13:46] LABS: Thyroid Stimulating Hormone 0.472 uIU/mL (0.465-4.680)
[2025-03-20 13:47] LABS: Hemoglobin A1C 6.4 % (<5.7)
== END 2025-03-20 10:36 | disposition home or self-care (01) ==
LOC: ANHGOSHLAB 10:37
PROVIDERS: PCP Family Medicine; Visit Provider Nurse Practitioner
DX: E78.5 Hyperlipidemia, unspecified (principal); J44.9 Chronic obstructive pulmonary disease, unspecified; R73.09 Other abnormal glucose; E66.9 Obesity, unspecified; Z79.899 Other long term (current) drug therapy; Z11.59 Encounter for screening for other viral diseases
CPT/HCPCS: 36415; 80053; 80061; 83036; 84443; 85027; 86803

== ENCOUNTER 2025-03-24 00:40 | Day surgery (SDC) | payer MEDICARE, MEDICAID, SELFPAY ==
[2025-03-11 15:22] VITALS: BMI 28.3
--- OUTSIDE RECORDS SUMMARY | 2025-03-24 00:49 | XMS_ITS | Clinical Summary ---
Author Organization [facility] Address [address] [place] [id number] Care Team Providers Care Cigar Bander Hand Name Role Phone Unavailable Primary Care Provider [...]
--- OUTSIDE RECORDS SUMMARY | 2025-03-24 00:49 | XMS_ITS ---
Author Name [facility] Address [address] [place], [place] Phone Organization [facility] Address [address] [place] [address] Phone Care Team Providers Care Material Mover Name Role Phone [facility] Unavailable [phone] YARED RAGLAND Unavailable WOODYCANDIDO Unavailable CALEB GRAY Unavailable ALLERGIES, ADVERSE REACTIONS AND ALERTS Allergy Name Allergy Date Allergy Status Allergy Severity Allergy Reaction NO KNOWN DRUG ALLERGIES MEDICATIONS RxNorm Brand Name Prescription Ordered Value Order Unit Start Date Date Status Fill Status Indications [id number] Vraylar 3 mg capsule SIG: Vraylar 3 mg oral capsule, 0 days, Dispense #1 Capsule, 0 Refills, Directions: DIRECTED 1 capsule 2022 Current [id number] pravasta tin 10 mg tablet SIG: pravastatin 10 mg oral tablet, 0 days, Dispense #1 Tablet, 0 Refills, Directions: DIRECTED 1 tablet 2022 Current [id number] amitript yline 10 mg tablet SIG: amitriptyline 10 mg oral tablet, 0 days, Dispense #1 Tablet, 0 Refills, Directions: DIRECTED 1 tablet 2022 Current Actical capsule SIG: Actical oral capsule, 0 days, Dispense #1 Capsule, 0 Refills, Directions: DIRECTED 1 capsule 2022 Current [id number] Flonase Allergy Relief 50 mcg/actu ation spray,saab spension SIG: Flonase Allergy Relief 50 mcg/actuation nasal spray,suspensi on, 0 days, Dispense #9.9 Milliliter, 0 Refills, Directions: DIRECTED 9.9 spray,s uspensi on 2022 Current [id number] Cholecal DF 95 mcg (3,800 unit)-1 mg tablet SIG: Cholecal DF 95 mcg (3,800 unit)-1 mg oral tablet, 0 days, Dispense #1 Tablet, 0 Refills, Directions: DIRECTED 1 tablet 2022 Current [id number] cephalex in 500 mg capsule SIG: cephalexin 500 mg oral capsule, 7 days, Dispense #14 Capsule, 0 RefillsDirecti ons: Take 1 oral capsule 2 times a day 14 capsule 2022 023 Historic [id number] ciproflo xacin-de xamethas one 0.3-0.1 % drops,saab spension SIG: ciprofloxacin- dexamethasone 0.3-0.1 % otic (ear) drops,suspensi on, 7 days, Dispense #1 Milliliter, 0 RefillsDirecti ons: 4 drops R ear 2 times a day 1 drops,s uspensi on 2022 023 Historic [id number] naproxen 500 mg tablet SIG: naproxen 500 mg oral tablet, 10 days, Dispense #20 Tablet, 0 RefillsDirecti ons: Take 1 oral tablet 2 times a day 20 tablet 2022 023 Historic [id number] polymyxi n B sulf-tri methopri m 10,000 unit- 1 mg/mL drops SIG: polymyxin B sulf-trimethop rim 10,000 unit- 1 mg/mL ophthalmic (eye) drops, 0 days, Dispense #10 Milliliter, 0 Refills, Directions: 1 drop R ear every 3 hours while awake 10 drops 2022 Current [id number] ofloxaci n 0.3 % drops SIG: ofloxacin 0.3 % otic (ear) drops, 7 days, Dispense #30 Milliliter, 0 RefillsDirecti ons: instill 10 drops daily x 7 days to affected ear 30 drops 2022 Current [id number] cephalex in 500 mg capsule SIG: cephalexin 500 mg oral capsule, 7 days, Dispense #14 Capsule, 0 RefillsDirecti ons: Take 1 oral capsule 2 times a day 14 capsule 2022 023 Historic [id number] phenazop yridine 200 mg tablet SIG: phenazopyridin e 200 mg oral tablet, 7 days, Dispense #21 Tablet, 0 RefillsDirecti ons: Take 1 oral tablet 3 times a day 21 tablet 2022 023 Historic [id number] sulfamet hoxazole -trimeth oprim 800-160 mg tablet SIG: sulfamethoxazo le-trimethopri m 800-160 mg oral tablet, 7 days, Dispense #14 Tablet, 0 RefillsDirecti ons: Take 1 oral tablet 2 times a day X 7 days 14 tablet 2022 Current [id number] amoxicil ava 875 mg tablet SIG: amoxicillin 875 mg oral tablet, 7 days, Dispense #14 Tablet, 0 RefillsDirecti ons: Take 1 oral tablet 2 times a day 14 tablet 2022 Current [id number] clindamy mehran HCl 150 mg capsule SIG: clindamycin HCl 150 mg oral capsule, 7 days, Dispense #42 Capsule, 0 RefillsDirecti ons: Take 2 oral capsules 3 times a day 42 capsule 2022 024 Historic [id number] neomycin -polymyx in-HC 3.5-10,0 00-1 mg/mL-un it/mL-% drops,saab spension SIG: neomycin-polym yxin-HC 3.5-10,000-1 mg/mL-unit/mL- % otic (ear) drops,suspensi on, 7 days, Dispense #10 Milliliter, 0 RefillsDirecti ons: 1 drop L ear every 3 hours while awake 10 drops,s uspensi on 2022 024 Historic [id number] Macrobid 100 mg capsule SIG: Macrobid 100 mg oral capsule, 7 days, Dispense #14 Capsule, 0 RefillsDirecti ons: Take 1 oral capsule 2 times a day 14 capsule 2023 Current [id number] ofloxaci n 0.3 % drops SIG: ofloxacin 0.3 % ophthalmic (eye) drops, 7 days, Dispense #10 Milliliter, 0 Refills, Directions: 2 drops right eye 4 times a day 10 drops 2023 024 Historic [id number] Cipro 500 mg tablet SIG: Cipro 500 mg oral tablet, 5 days, Dispense #10 Tablet, 0 Refills, Directions: Take 1 oral tablet 2 times a day 10 tablet 2023 024 Historic [id number] cephalex in 500 mg capsule SIG: cephalexin 500 mg oral capsule, 7 days, Dispense #14 Capsule, 0 Refills, Directions: Take 1 oral capsule 2 times a day 14 capsule 2023 024 Historic [id number] Medrol (Cedrick) 4 mg tablets, dose pack SIG: Medrol (Cedrick) 4 mg oral tablets,dose pack, 0 days, Dispense #21 Tablet, 0 Refills, Directions: Take as directed on package 21 tablets ,dose pack 2024 Current [id number] Zithroma x Z-Cedrick 250 mg tablet SIG: Zithromax Z-Cedrick 250 mg oral tablet, 0 days, Dispense #6 Tablet, 0 Refills, Directions: Take as directed on package 6 tablet 2024 Current [id number] Flonase Allergy Relief 50 mcg/actu ation spray,saab spension SIG: Flonase Allergy Relief 50 mcg/actuation nasal spray,suspensi on, 0 days, Dispense #11.1 Milliliter, 0 Refills, Directions: 1 spray in each nostril every night before bed 11.1 spray,s uspensi on 2024 Current [id number] Zyrtec 10 mg tablet SIG: Zyrtec 10 mg oral tablet, 30 days, Dispense #30 Tablet, 0 Refills, Directions: Take 1 oral tablet once a day 30 tablet 2024 Current [id number] CETIRIZI NE HCL 10 MG TABLET 10 mg tablet SIG: CETIRIZINE HCL 10 MG TABLET, Dispense #30, 0 Refills, Directions: TAKE 1 TABLET BY MOUTH EVERY DAY 30 tablet 2024 Historic PROBLEMS Problem Code Problem Description Problem Status Problem Da te Problem End Date [id number]-Oixzm anxiety and depressive disorder Mixed anxiety and depressive disorder Current 12/23/2022 [id number]-Bjliipajg esterolemia Hypercholesterolemia Current 12/23/2022 [id number]-Jtlqctyc Insomnia Current 12/23/2022 [id number]-Wdotzk of lung Nodule of lung Current 12/23/2022 [id number]-Vznlvcly ctomy Tonsillectomy Current 08/17/2023 [id number]-Utaonlk obstructive lung disease Chronic obstructive lung disease Current 08/17/2023 [id number]-Gkzzakqra py Colonoscopy Current 02/11/2024 PROCEDURES Procedure Description [...] Regular Smoker Sex: Female CARE TEAM INFORMATION Material Mover Provider ID Role Location Phone [facility] [address] [place] YARED RAGLAND [id number] NURSE PRACTITIONER [address] [place] [address] CANDIDO MCKAY [id number] NURSE PRACTITIONER [address] [place] [address] CALEB GRAY [id number] NURSE PRACTITIONER [address] [place] [address] INSURANCE PROVIDERS Payer Name Policy type / Coverage type Covered alliance party ID Policy Russell [place] MEDICAID Medicaid [id number] [facility] Private Health Insurance [id number] MANOJ Do
[2025-03-24 08:06] VITALS: BP 127/79; PULSE 96; RESP 18; TEMP 37.1; O2SAT 96
[2025-03-24 08:15] VITALS: BMI 28.2
[2025-03-24] MEDS: LACTATED RINGERS 1,000 ML 150 ML IV CONT (08:23)
--- NOTE | 2025-03-24 08:38 | P.PNAN_ITS ---
Anes - Initial Pre Proc Eval Procedure: Operation Date: 03/24/25 09:30 Proposed Procedures p Screening Colonoscopy - Darwin Piña MD Date/Time: 03/24/25 08:38 Surgeon: Darwin Piña MD Pre Op Diagnosis: neoplasm screening Patient Data Age: 69 Gender: F Height: 1.55 m Weight: 67.8 kg Allergies Allergy/AdvReac Type Severity Reaction Status Date / Time No Known Allergies Allergy Verified 03/24/25 08:13 Home Medications ?Medication ?Instructions ?Recorded ?Confirmed ?Type calcium carbonate (Calcium 500) 1,200 mg PO DAILY 01/05/23 03/24/25 History trazodone 100 mg tablet 200 mg PO HS PRN Insomnia 01/18/24 03/24/25 History pravastatin 80 mg tablet 80 mg PO DAILY #90 tabs 05/16/24 03/24/25 Rx fluticasone propionate 50 2 spray intranasal DAILY #48 grams 09/06/24 03/24/25 Rx mcg/actuation nasal spray,suspension (Flonase Allergy Relief) brexpiprazole 1 mg tablet (Rexulti) 1 mg PO DAILY 11/14/24 03/24/25 History lamotrigine 100 mg tablet 100 mg PO BID 11/14/24 03/24/25 History sertraline 50 mg tablet 50 mg PO Q24H 11/14/24 03/24/25 History nitrofurantoin macrocrystal 100 mg 100 mg PO QHS #90 caps 11/26/24 03/24/25 Rx capsule hydroxyzine HCl 25 mg tablet 25 mg PO DAILY 03/11/25 03/24/25 History ezetimibe 10 mg tablet 10 mg PO DAILY #90 tabs 03/20/25 03/24/25 Rx tiotropium bromide 2.5 2 puff inhalation DAILY #4 grams 03/20/25 03/24/25 Rx mcg/actuation mist for inhalation Patient hx anesthesia problems: none Family hx anesthesia problems: none Results Review: All pre-operative results and documents have been reviewed as part of the pre- operative evaluation. [facility] Past Medical History Medical History Positive colorectal cancer screening using Cologuard test Major depressive disorder DDD (degenerative disc disease) DJD (degenerative joint disease) COPD (chronic obstructive pulmonary disease) Arthritis Anxiety Surgical History Surgical History History of ankle surgery History of tonsillectomy Family History Family History Mother Diabetes mellitus Grandparent Diabetes mellitus Hypertension Heart disease Cerebrovascular accident Social History Social History Years smoked: 20 Smoking status: Never smoker Tobacco type: e-cigarettes/vaping Smoking end date: 01/26/21 Alcohol intake: never Substance use: never Substance use type: does not use Lack of Transportation: No Lack of Food: Never True Current Housing: I Have Housing Concerned About Future Housing: No Difficulty Paying Gas/Electric Bills: No Difficulty Paying for Meds: No Education: High School Diploma/GED Difficulty w/ Childcare or Family Care: No Living arrangements: alone Occupation/Education: retired Gender identity (if verbalized by the patient): Female Sexual Orientation (if Verbalized by the Patient): Straight or Heterosexual Spiritual care concerns: No Agree to blood products: Yes Anes - Eval Final PreProcedure Day of Procedure 03/24/25 08:38 Patient weight: overweight Heart: regular rate and rhythm Lungs: decreased breath sounds Airway: Mallampati scale class III Neurological: alert and oriented Last oral intake: >/= 8 hours ASA classification: III Emergent: no Anesthetic plan: proceed Anesthesia type and monitoring: general GIVS and standard monitoring Results Review: All pre-operative results and documents have been reviewed as part of the pre- operative evaluation. Informed Consent: The patient's anesthetic plan and its attendant risks and benefits were discussed with the patient/family/POA. Questions were solicited and answers provided to the satisfaction of the patient/family/POA.
--- NOTE | 2025-03-24 08:57 | PM.HPGS ---
History of Present Illness History of Present Illness Consent: Risks, benefits, and alternatives have been discussed and questions answered. Patient agrees to proceed with procedure. Chief complaint: neoplasm screening Narrative: Lottie Paz is a 69 year old female with colon polyp 1 year ago Review of Systems Review of Systems: All systems reviewed & are unremarkable except as noted in HPI and below PMFSH Past Medical History Medical History Positive colorectal cancer screening using Cologuard test Major depressive disorder DDD (degenerative disc disease) DJD (degenerative joint disease) COPD (chronic obstructive pulmonary disease) Arthritis Anxiety Surgical History Surgical History History of ankle surgery History of tonsillectomy Family History Family History Mother Diabetes mellitus Grandparent Diabetes mellitus Hypertension Heart disease Cerebrovascular accident Social History Social History Years smoked: 20 Smoking status: Never smoker Tobacco type: e-cigarettes/vaping Smoking end date: 01/26/21 Alcohol intake: never Substance use: never Substance use type: does not use Lack of Transportation: No Lack of Food: Never True Current Housing: I Have Housing Concerned About Future Housing: No Difficulty Paying Gas/Electric Bills: No Difficulty Paying for Meds: No Education: High School Diploma/GED Difficulty w/ Childcare or Family Care: No Living arrangements: alone Occupation/Education: retired Gender identity (if verbalized by the patient): Female Sexual Orientation (if Verbalized by the Patient): Straight or Heterosexual Spiritual care concerns: No Agree to blood products: Yes Meds Home Medications and Allergies Home Medications ?Medication ?Instructions ?Recorded ?Confirmed ?Type calcium carbonate (Calcium 500) 1,200 mg PO DAILY 01/05/23 03/24/25 History trazodone 100 mg tablet 200 mg PO HS PRN Insomnia 01/18/24 03/24/25 History pravastatin 80 mg tablet 80 mg PO DAILY #90 tabs 05/16/24 03/24/25 Rx fluticasone propionate 50 2 spray intranasal DAILY #48 grams 09/06/24 03/24/25 Rx mcg/actuation nasal spray,suspension (Flonase Allergy Relief) brexpiprazole 1 mg tablet (Rexulti) 1 mg PO DAILY 11/14/24 03/24/25 History lamotrigine 100 mg tablet 100 mg PO BID 11/14/24 03/24/25 History sertraline 50 mg tablet 50 mg PO Q24H 11/14/24 03/24/25 History nitrofurantoin macrocrystal 100 mg 100 mg PO QHS #90 caps 11/26/24 03/24/25 Rx capsule hydroxyzine HCl 25 mg tablet 25 mg PO DAILY 03/11/25 03/24/25 History ezetimibe 10 mg tablet 10 mg PO DAILY #90 tabs 03/20/25 03/24/25 Rx tiotropium bromide 2.5 2 puff inhalation DAILY #4 grams 03/20/25 03/24/25 Rx mcg/actuation mist for inhalation Allergies Allergy/AdvReac Type Severity Reaction Status Date / Time No Known Allergies Allergy Verified 03/24/25 08:13 Exam Const: General: comfortable and no acute distress HENMT: Face/Nose/Sinus: Normal nares present Eyes: General: appearance normal, both eyes and all related structures Neck: Neck: no JVD Resp: Auscultation: clear to auscultation bilaterally Cardio: Rate: regular rate Rhythm: regular rhythm GI: Inspection: non-distended GI Palp: Yes Soft to palpation Skin: General skin exam: normal color Neuro: General: gait normal Speech: normal speech Extrem: General: normal to inspection Psych: Mental Status: mental status grossly normal Assessment and Plan Assessment and plan (1) Colon polyps: Qualifiers: Colon polyp type: unspecified Colon location: unspecified part of colon Qualified Code(s): K63.5 - Polyp of colon Code(s): K63.5 - Polyp of colon Status: Acute Assessment and Plan: colonoscopy
--- NOTE | 2025-03-24 09:13 | S_PTH ---
PATIENT: Lottie Paz LOC: [facility] Mohamud#:[id number] AGE/SX: 69/F ROOM: RE03/24/[address]: Darwin Piña MD : [id number] BED: DIS: 03/24/2025 SPEC #: [id number] RECD: 03/24/25 11:14 STATUS: CORNELL REDoris #: [id number] SHANELLE: 03/24/25 09:[address]: Darwin Piña DEPT: [facility] RECD BY: Debora Skaggs ENTERED: 03/24/25 11:14 SP TYPE: Surgical OTHR DR: Rolanda Silver DO Tissues: A - Colon Polypectomy B - Colon Polypectomy Procedures: Hematoxylin and Eosin Stain Gross and Microscopic Level 4
[2025-03-24 09:15] VITALS: BP 97/58; PULSE 78; RESP 18; O2SAT 95
[2025-03-24 09:25] VITALS: BP 106/65; PULSE 76; RESP 19; O2SAT 94
[2025-03-24 09:35] VITALS: BP 113/60; PULSE 80; RESP 19; O2SAT 98
== END 2025-03-24 09:47 | disposition home or self-care (01) ==
PROVIDERS: PCP Family Medicine; Referring Provider Internal Medicine Gastroenterology; Visit Provider Internal Medicine Gastroenterology
PROC: 0DJD8ZZ Inspection of Lower Intestinal Tract, Via Natural or Artificial Opening Endoscopic (ICD-10-PCS; CPT 45378; principal; 2025-03-24 09:30)
DX: Z12.11 Encounter for screening for malignant neoplasm of colon (principal); D12.5 Benign neoplasm of sigmoid colon; K63.5 Polyp of colon; K64.8 Other hemorrhoids; K57.30 Diverticulosis of large intestine without perforation or abscess without bleeding; J44.9 Chronic obstructive pulmonary disease, unspecified; F41.9 Anxiety disorder, unspecified; F32.9 Major depressive disorder, single episode, unspecified; M19.90 Unspecified osteoarthritis, unspecified site; M51.9 Unspecified thoracic, thoracolumbar and lumbosacral intervertebral disc disorder; Z98.890 Other specified postprocedural states; Z87.891 Personal history of nicotine dependence; Z82.49 Family history of ischemic heart disease and other diseases of the circulatory system
CPT/HCPCS: 45385; 88305; J2003; J2704; J7120

== ENCOUNTER 2025-04-09 12:52 | Outpatient (CLI) | payer MEDICARE, MEDICAID, SELFPAY ==
--- NOTE | ~2025-04-09 | CT_ITS ---
CLINICAL INDICATION: Ventral hernia COMPARISON: None. TECHNIQUE: Multiple contiguous axial images of the abdomen were performed without the administration of intravenous contrast The dose-length product (DLP) was 326.82 mGy-cm. Automated exposure control and iterative reconstruction technique were employed. FINDINGS/OBSERVATIONS: Visualized lower thorax: The bilateral lung bases are clear. The heart is of normal size, without pericardial effusion. Small hiatal hernia is present. Liver: The liver demonstrates homogeneous attenuation and is borderline enlarged measuring 19 cm in longitud inal dimension. Gallbladder and biliary system: The gallbladder is only minimally distended, contains multiple stones and is otherwise unremarkable. Pancreas: Limited evaluation of the pancreas secondary to the lack of intravenous contrast. Spleen: The spleen demonstrates homogeneous attenuation. Kidneys: The bilateral kidneys are unremarkable, without hydronephrosis or renal calculi. Adrenal glands: Unremarkable. Gastrointestinal tract: Colonic diverticulosis without surrounding inflammatory change. Appendix: The air-filled appendix is of normal caliber (axial series, images 92 through 100) Vasculature: Densely calcified atherosclerotic disease. Lymph nodes: No pathologically enlarged or morphologically suspicious lymph nodes within the visualized portion of the retroperitoneum or at the root of the mesentery. Body wall and musculoskeletal: Fat-containing ventral hernia, with a 3.1 cm fascial defect, located approximately 12 cm above the um bilicus. Compression of the superior endplate of T12, possibly a large Schmorl's node. IMPRESSION: Fat-containing ventral hernia, as detailed above. Cholelithiasis. Reviewed, dictated and finalized at location A.
--- OUTSIDE RECORDS SUMMARY | 2025-04-09 12:56 | XMS_ITS | Clinical Summary ---
Author Organization [facility] Address [address] [place] [address] Care Team Providers Care Transformer Coil Winder Name Role Phone Unavailable Primary Care Provider [...]
--- OUTSIDE RECORDS SUMMARY | 2025-04-09 12:56 | XMS_ITS ---
Author Name [facility] Address [address] [place], [place] Phone Organization [facility] Address [address] [place] [address] Phone Care Team Providers Care Manager Credit Risk Name Role Phone [facility] Unavailable [phone] YARED RAGLAND Unavailable WOODYCANDIDO Unavailable CALEB GRAY Unavailable ALLERGIES, ADVERSE REACTIONS AND ALERTS Allergy Name Allergy Date Allergy Status Allergy Severity Allergy Reaction NO KNOWN DRUG ALLERGIES MEDICATIONS RxNorm Brand Name Prescription Ordered Value Order Unit Start Date Date Status Fill Status Indications [id number] Vraylar 3 mg capsule SIG: Vraylar 3 mg oral capsule, 0 days, Dispense #1 Capsule, 0 Refills, Directions: DIRECTED 1 capsule 2022 Current [id number] pravasta tin 10 mg tablet SIG: pravastatin 10 mg oral tablet, 0 days, Dispense #1 Tablet, 0 Refills, Directions: DIRECTED 1 tablet 2022 Current [id number] amitript yline 10 mg tablet SIG: amitriptyline 10 mg oral tablet, 0 days, Dispense #1 Tablet, 0 Refills, Directions: DIRECTED 1 tablet 2022 Current Actical capsule SIG: Actical oral capsule, 0 days, Dispense #1 Capsule, 0 Refills, Directions: DIRECTED 1 capsule 2022 Current [id number] Flonase Allergy Relief 50 mcg/actu ation spray,saab spension SIG: Flonase Allergy Relief 50 mcg/actuation nasal spray,suspensi on, 0 days, Dispense #9.9 Milliliter, 0 Refills, Directions: DIRECTED 9.9 spray,s uspensi on 2022 Current [id number] Cholecal DF 95 mcg (3,800 unit)-1 mg tablet SIG: Cholecal DF 95 mcg (3,800 unit)-1 mg oral tablet, 0 days, Dispense #1 Tablet, 0 Refills, Directions: DIRECTED 1 tablet 2022 Current [id number] cephalex in 500 mg capsule SIG: cephalexin 500 mg oral capsule, 7 days, Dispense #14 Capsule, 0 RefillsDirecti ons: Take 1 oral capsule 2 times a day 14 capsule 2022 023 Historic [id number] ciproflo xacin-de xamethas one 0.3-0.1 % drops,saab spension SIG: ciprofloxacin- dexamethasone 0.3-0.1 % otic (ear) drops,suspensi on, 7 days, Dispense #1 Milliliter, 0 RefillsDirecti ons: 4 drops R ear 2 times a day 1 drops,s uspensi on 2022 023 Historic [id number] naproxen 500 mg tablet SIG: naproxen 500 mg oral tablet, 10 days, Dispense #20 Tablet, 0 RefillsDirecti ons: Take 1 oral tablet 2 times a day 20 tablet 2022 023 Historic [id number] polymyxi n B sulf-tri methopri m 10,000 unit- 1 mg/mL drops SIG: polymyxin B sulf-trimethop rim 10,000 unit- 1 mg/mL ophthalmic (eye) drops, 0 days, Dispense #10 Milliliter, 0 Refills, Directions: 1 drop R ear every 3 hours while awake 10 drops 2022 Current [id number] ofloxaci n 0.3 % drops SIG: ofloxacin 0.3 % otic (ear) drops, 7 days, Dispense #30 Milliliter, 0 RefillsDirecti ons: instill 10 drops daily x 7 days to affected ear 30 drops 2022 Current [id number] cephalex in 500 mg capsule SIG: cephalexin 500 mg oral capsule, 7 days, Dispense #14 Capsule, 0 RefillsDirecti ons: Take 1 oral capsule 2 times a day 14 capsule 2022 023 Historic [id number] phenazop yridine 200 mg tablet SIG: phenazopyridin e 200 mg oral tablet, 7 days, Dispense #21 Tablet, 0 RefillsDirecti ons: Take 1 oral tablet 3 times a day 21 tablet 2022 023 Historic [id number] sulfamet hoxazole -trimeth oprim 800-160 mg tablet SIG: sulfamethoxazo le-trimethopri m 800-160 mg oral tablet, 7 days, Dispense #14 Tablet, 0 RefillsDirecti ons: Take 1 oral tablet 2 times a day X 7 days 14 tablet 2022 Current [id number] amoxicil ava 875 mg tablet SIG: amoxicillin 875 mg oral tablet, 7 days, Dispense #14 Tablet, 0 RefillsDirecti ons: Take 1 oral tablet 2 times a day 14 tablet 2022 Current [id number] clindamy mehran HCl 150 mg capsule SIG: clindamycin HCl 150 mg oral capsule, 7 days, Dispense #42 Capsule, 0 RefillsDirecti ons: Take 2 oral capsules 3 times a day 42 capsule 2022 024 Historic [id number] neomycin -polymyx in-HC 3.5-10,0 00-1 mg/mL-un it/mL-% drops,saab spension SIG: neomycin-polym yxin-HC 3.5-10,000-1 mg/mL-unit/mL- % otic (ear) drops,suspensi on, 7 days, Dispense #10 Milliliter, 0 RefillsDirecti ons: 1 drop L ear every 3 hours while awake 10 drops,s uspensi on 2022 024 Historic [id number] Macrobid 100 mg capsule SIG: Macrobid 100 mg oral capsule, 7 days, Dispense #14 Capsule, 0 RefillsDirecti ons: Take 1 oral capsule 2 times a day 14 capsule 2023 Current [id number] ofloxaci n 0.3 % drops SIG: ofloxacin 0.3 % ophthalmic (eye) drops, 7 days, Dispense #10 Milliliter, 0 Refills, Directions: 2 drops right eye 4 times a day 10 drops 2023 024 Historic [id number] Cipro 500 mg tablet SIG: Cipro 500 mg oral tablet, 5 days, Dispense #10 Tablet, 0 Refills, Directions: Take 1 oral tablet 2 times a day 10 tablet 2023 024 Historic [id number] cephalex in 500 mg capsule SIG: cephalexin 500 mg oral capsule, 7 days, Dispense #14 Capsule, 0 Refills, Directions: Take 1 oral capsule 2 times a day 14 capsule 2023 024 Historic [id number] Medrol (Cedrick) 4 mg tablets, dose pack SIG: Medrol (Cedrick) 4 mg oral tablets,dose pack, 0 days, Dispense #21 Tablet, 0 Refills, Directions: Take as directed on package 21 tablets ,dose pack 2024 Current [id number] Zithroma x Z-Cedrick 250 mg tablet SIG: Zithromax Z-Cedrick 250 mg oral tablet, 0 days, Dispense #6 Tablet, 0 Refills, Directions: Take as directed on package 6 tablet 2024 Current [id number] Flonase Allergy Relief 50 mcg/actu ation spray,saab spension SIG: Flonase Allergy Relief 50 mcg/actuation nasal spray,suspensi on, 0 days, Dispense #11.1 Milliliter, 0 Refills, Directions: 1 spray in each nostril every night before bed 11.1 spray,s uspensi on 2024 Current [id number] Zyrtec 10 mg tablet SIG: Zyrtec 10 mg oral tablet, 30 days, Dispense #30 Tablet, 0 Refills, Directions: Take 1 oral tablet once a day 30 tablet 2024 Current [id number] CETIRIZI NE HCL 10 MG TABLET 10 mg tablet SIG: CETIRIZINE HCL 10 MG TABLET, Dispense #30, 0 Refills, Directions: TAKE 1 TABLET BY MOUTH EVERY DAY 30 tablet 2024 Historic PROBLEMS Problem Code Problem Description Problem Status Problem Da te Problem End Date [id number]-Qxkde anxiety and depressive disorder Mixed anxiety and depressive disorder Current 12/23/2022 [id number]-Ysvldmwnw esterolemia Hypercholesterolemia Current 12/23/2022 [id number]-Ihqsjpas Insomnia Current 12/23/2022 626861970-Msigoa of lung Nodule of lung Current 12/23/2022 350944799-Imrmwolh ctomy Tonsillectomy Current 08/17/2023 61775585-Nuxhwdk obstructive lung disease Chronic obstructive lung disease Current 08/17/2023 [id number]-Ujfasfugi py Colonoscopy Current 02/11/2024 PROCEDURES Procedure Description [...] Regular Smoker Sex: Female CARE TEAM INFORMATION Manager Credit Risk Provider ID Role Location Phone [facility] [address] [place], [place] YARED RAGLAND [id number] NURSE PRACTITIONER [address] [place] [address] CANDIDO MCKAY [id number] NURSE PRACTITIONER [address] [place] [address] CALEB GRAY [id number] NURSE PRACTITIONER [address] [place] [address] INSURANCE PROVIDERS Payer Name Policy type / Coverage type Covered constitution party ID Policy Russell [place] MEDICAID Medicaid [id number] [facility] Private Health Insurance [id number] MANOJ Do
== END 2025-04-09 12:53 | disposition home or self-care (01) ==
PROVIDERS: PCP Family Medicine; Visit Provider Surgery
DX: K43.9 Ventral hernia without obstruction or gangrene (principal); K80.20 Calculus of gallbladder without cholecystitis without obstruction
CPT/HCPCS: 74150

== ENCOUNTER 2025-05-07 09:48 | Outpatient (CLI) | payer MEDICARE, MEDICAID, SELFPAY ==
--- NOTE | 2025-05-07 10:01 | ECG_ITS ---
Test Date: 2025-05-07 10:19:13 Measurements Intervals [place] Rate: 83 P: 67 [place]: 150 QRS: -22 QRSD: 85 T: 56 QT: 379 QTc: 447 Interpretive Statements SINUS RHYTHM BORDERLINE LEFT AXIS DEVIATION [QRS AXIS < -20] LOW QRS VOLTAGE IN EXTREMITY LEADS [QRS DEFLECTION < 0.5 mV IN LIMB LEADS] ABNORMAL ECG No previous ECG available for comparison Electronically Signed On 05-07-2025 16:18:48 CDT by Gera Lamar M.D.
--- OUTSIDE RECORDS SUMMARY | 2025-05-07 10:40 | XMS_ITS | Clinical Summary ---
Author Organization [facility] [employer] Address [address] [address] Care Team Providers Care Icu Nurse Name Role Phone Mariah River MD Primary Care Prov ider Source Comments [facility],non-owned Affiliates and Associated Physician Practices is amultiple site organization consisting of ambulatory clinics and hospital sitesin [place], [place], [place] and [place]. This disclosure is being madepursuant to the Care Everywhere program and may not contain all information available regarding this patient. Last updated 18.[facility] Allergies No known active allergies Medications * Be aware that medications may not be up to date on this document. Alwaysverify current medications with the patient. Cholecalciferol (VITAMIN D HIGH POTENCY PO) Take 2,000 Units by mouth Active ETODOLAC PO Active HYDROXYZINE HCL PO Active VENLAFAXINE HCL ER PO Active Tiotropium [place] Monohydrate (SPIRIVA RESPIMAT IN) Active Albuterol Sulfate (VENTOLIN HFA IN) Active fluticasone propionate (FLONASE) 50 MCG/ACT nasal sprayIndications :Chronic frontal sinusitis Hundred 2 Sprays into each nostril once daily [...] Smoking Tobacco: Some Days Smokeless Tobacco: Never Comments No Sex and Gender Information Value Date Recorded Sex Assigned at Not on file Legal Sex Female 1:13 PM CDT Gender Identity Not on file Sexual Orientation Not on file Last Filed Vital Signs Vital Sign Reading Time Taken Comments Blood Pressure 122/72 08/02/2019 5:44 PM STACKER DRIVER Pulse 90 08/02/2019 5:44 PM STACKER DRIVER Temperature 37.1 C (98.7 F) 08/02/2019 5:44 PM STACKER DRIVER Respiratory Rate 16 08/02/2019 5:44 PM STACKER DRIVER Oxygen Saturation 98% 08/02/2019 5:44 PM STACKER DRIVER Inhaled Oxygen Concentration - - Weight 72.6 kg (160 lb) 08/02/2019 5:44 PM STACKER DRIVER Height 157.5 cm (5' 2) 08/02/2019 5:44 PM STACKER DRIVER Body Mass Index 29.26 08/02/2019 5:44 PM STACKER DRIVER Plan of Treatment Health Maintenance Due Date [...] of 2) 2006 SCREENING FOR DIABETES 08/08/2018 DEPRESSION SCREENING 08/28/2024 MEDICARE AWV CALENDAR YEAR 2024 COVID-19 VACCINE ( - 2023-2 5 season) 2025 INFLUENZA VACCINE (#1) 2025 Respiratory Syncytial Virus (RSV) Vaccine Pt: or [...] on patient's age to complete this topic Insurance MEDICAID - [place] [employer] MEDICARE ADV HMO & PPO HUMAN SELF PAY NO INSURANCE Member Subscriber Plan / Payer (Ef fective for All Dates) Name:Jackson, Lottie A Member ID:Not on file Relation to Subscriber:Not on file Name:LOTTIE PAZ Savita Subscriber ID:Not on file (Home) Address: [address] [place] [address] Payer ID:Not on file Group ID:Not on file Type:Self Pay Address: [place], [place] * Guarantor: LOTTIE PAZ Account Type Relation to Patient Date of Phone Billing Address Personal/Family [address] [place] [address] [employer] * Guarantor: LOTTIE PAZ Account Type Relation to Patient Date of Phone Billing Address Personal/Family [address] [place] [address] * Guarantor: LOTTIE PAZ Account Type Relation to Patient Date of Phone Billing Address Personal/Family [address] [place] [address] Care Teams Icu Nurse Relationship Specialty Start Date End Date Mariah River MD PCP - General Student Resident 11/16/15
--- OUTSIDE RECORDS SUMMARY | 2025-05-07 10:41 | XMS_ITS ---
Author Name [facility] Address [address], [place] Phone Organization [facility] Address [address] [place] [address] Phone Care Team Providers Care Denture Waxer Name Role Phone [facility] Unavailable [phone] YARED RAGLAND Unavailable WOODYCANDIDO Unavailable CALEB GRAY Unavailable ALLERGIES, ADVERSE REACTIONS AND ALERTS Allergy Name Allergy Date Allergy Status Allergy Severity Allergy Reaction NO KNOWN DRUG ALLERGIES MEDICATIONS RxNorm Brand Name Prescription Ordered Value Order Unit Start Date Date Status Fill Status Indications [id number] Vraylar 3 mg capsule SIG: Vraylar 3 mg oral capsule, 0 days, Dispense #1 Capsule, 0 Refills, Directions: DIRECTED 1 capsule 2022 Current [id number] pravasta tin 10 mg tablet SIG: pravastatin 10 mg oral tablet, 0 days, Dispense #1 Tablet, 0 Refills, Directions: DIRECTED 1 tablet 2022 Current [id number] amitript yline 10 mg tablet SIG: amitriptyline 10 mg oral tablet, 0 days, Dispense #1 Tablet, 0 Refills, Directions: DIRECTED 1 tablet 2022 Current Actical capsule SIG: Actical oral capsule, 0 days, Dispense #1 Capsule, 0 Refills, Directions: DIRECTED 1 capsule 2022 Current [id number] Flonase Allergy Relief 50 mcg/actu ation spray,saab spension SIG: Flonase Allergy Relief 50 mcg/actuation nasal spray,suspensi on, 0 days, Dispense #9.9 Milliliter, 0 Refills, Directions: DIRECTED 9.9 spray,s uspensi on 2022 Current [id number] Cholecal DF 95 mcg (3,800 unit)-1 mg tablet SIG: Cholecal DF 95 mcg (3,800 unit)-1 mg oral tablet, 0 days, Dispense #1 Tablet, 0 Refills, Directions: DIRECTED 1 tablet 2022 Current [id number] cephalex in 500 mg capsule SIG: cephalexin 500 mg oral capsule, 7 days, Dispense #14 Capsule, 0 RefillsDirecti ons: Take 1 oral capsule 2 times a day 14 capsule 2022 023 Historic [id number] ciproflo xacin-de xamethas one 0.3-0.1 % drops,saab spension SIG: ciprofloxacin- dexamethasone 0.3-0.1 % otic (ear) drops,suspensi on, 7 days, Dispense #1 Milliliter, 0 RefillsDirecti ons: 4 drops R ear 2 times a day 1 drops,s uspensi on 2022 023 Historic [id number] naproxen 500 mg tablet SIG: naproxen 500 mg oral tablet, 10 days, Dispense #20 Tablet, 0 RefillsDirecti ons: Take 1 oral tablet 2 times a day 20 tablet 2022 023 Historic [id number] polymyxi n B sulf-tri methopri m 10,000 unit- 1 mg/mL drops SIG: polymyxin B sulf-trimethop rim 10,000 unit- 1 mg/mL ophthalmic (eye) drops, 0 days, Dispense #10 Milliliter, 0 Refills, Directions: 1 drop R ear every 3 hours while awake 10 drops 2022 Current [id number] ofloxaci n 0.3 % drops SIG: ofloxacin 0.3 % otic (ear) drops, 7 days, Dispense #30 Milliliter, 0 RefillsDirecti ons: instill 10 drops daily x 7 days to affected ear 30 drops 2022 Current [id number] cephalex in 500 mg capsule SIG: cephalexin 500 mg oral capsule, 7 days, Dispense #14 Capsule, 0 RefillsDirecti ons: Take 1 oral capsule 2 times a day 14 capsule 2022 023 Historic [id number] phenazop yridine 200 mg tablet SIG: phenazopyridin e 200 mg oral tablet, 7 days, Dispense #21 Tablet, 0 RefillsDirecti ons: Take 1 oral tablet 3 times a day 21 tablet 2022 023 Historic [id number] sulfamet hoxazole -trimeth oprim 800-160 mg tablet SIG: sulfamethoxazo le-trimethopri m 800-160 mg oral tablet, 7 days, Dispense #14 Tablet, 0 RefillsDirecti ons: Take 1 oral tablet 2 times a day X 7 days 14 tablet 2022 Current [id number] amoxicil ava 875 mg tablet SIG: amoxicillin 875 mg oral tablet, 7 days, Dispense #14 Tablet, 0 RefillsDirecti ons: Take 1 oral tablet 2 times a day 14 tablet 2022 Current [id number] clindamy mehran HCl 150 mg capsule SIG: clindamycin HCl 150 mg oral capsule, 7 days, Dispense #42 Capsule, 0 RefillsDirecti ons: Take 2 oral capsules 3 times a day 42 capsule 2022 024 Historic [id number] neomycin -polymyx in-HC 3.5-10,0 00-1 mg/mL-un it/mL-% drops,saab spension SIG: neomycin-polym yxin-HC 3.5-10,000-1 mg/mL-unit/mL- % otic (ear) drops,suspensi on, 7 days, Dispense #10 Milliliter, 0 RefillsDirecti ons: 1 drop L ear every 3 hours while awake 10 drops,s uspensi on 2022 024 Historic [id number] Macrobid 100 mg capsule SIG: Macrobid 100 mg oral capsule, 7 days, Dispense #14 Capsule, 0 RefillsDirecti ons: Take 1 oral capsule 2 times a day 14 capsule 2023 Current [id number] ofloxaci n 0.3 % drops SIG: ofloxacin 0.3 % ophthalmic (eye) drops, 7 days, Dispense #10 Milliliter, 0 Refills, Directions: 2 drops right eye 4 times a day 10 drops 2023 024 Historic [id number] Cipro 500 mg tablet SIG: Cipro 500 mg oral tablet, 5 days, Dispense #10 Tablet, 0 Refills, Directions: Take 1 oral tablet 2 times a day 10 tablet 2023 024 Historic [id number] cephalex in 500 mg capsule SIG: cephalexin 500 mg oral capsule, 7 days, Dispense #14 Capsule, 0 Refills, Directions: Take 1 oral capsule 2 times a day 14 capsule 2023 024 Historic [id number] Medrol (Cedrick) 4 mg tablets, dose pack SIG: Medrol (Cedrick) 4 mg oral tablets,dose pack, 0 days, Dispense #21 Tablet, 0 Refills, Directions: Take as directed on package 21 tablets ,dose pack 2024 Current [id number] Zithroma x Z-Cedrick 250 mg tablet SIG: Zithromax Z-Cedrick 250 mg oral tablet, 0 days, Dispense #6 Tablet, 0 Refills, Directions: Take as directed on package 6 tablet 2024 Current [id number] Flonase Allergy Relief 50 mcg/actu ation spray,saab spension SIG: Flonase Allergy Relief 50 mcg/actuation nasal spray,suspensi on, 0 days, Dispense #11.1 Milliliter, 0 Refills, Directions: 1 spray in each nostril every night before bed 11.1 spray,s uspensi on 2024 Current [id number] Zyrtec 10 mg tablet SIG: Zyrtec 10 mg oral tablet, 30 days, Dispense #30 Tablet, 0 Refills, Directions: Take 1 oral tablet once a day 30 tablet 2024 Current [id number] CETIRIZI NE HCL 10 MG TABLET 10 mg tablet SIG: CETIRIZINE HCL 10 MG TABLET, Dispense #30, 0 Refills, Directions: TAKE 1 TABLET BY MOUTH EVERY DAY 30 tablet 2024 Historic [id number] azithrom ycin 250 mg tablet SIG: azithromycin 250 mg oral tablet, 5 days, Dispense #6 Tablet, 0 Refills, Directions: Take 2 tablets now and 1 tablet on days 2-5 6 tablet 2024 025 Historic [id number] benzonat ate 200 mg capsule SIG: benzonatate 200 mg oral capsule, 7 days, Dispense #21 Capsule, 0 Refills, Directions: Take 1 oral capsule 3 times a day 21 capsule 2024 025 Current [id number] azithrom ycin 250 mg tablet SIG: azithromycin 250 mg oral tablet, 5 days, Dispense #6 Tablet, 0 Refills, Directions: Take 2 tablets now and 1 tablet on days 2-5 6 tablet 2024 025 Historic PROBLEMS Problem Code Problem Description Problem Status Problem Da te Problem End Date [id number] anxiety and depressive disorder Mixed anxiety and depressive disorder Current 12/23/2022 [id number]-Rwwlwlriq esterolemia Hypercholesterolemia Current 12/23/2022 [id number]-Naifyjrn Insomnia Current 12/23/2022 [id number]-Qarphf of lung Nodule of lung Current 12/23/2022 [id number]-Hrbyujtm ctomy Tonsillectomy Current 08/17/2023 [id number]-Xryhbli obstructive lung disease Chronic obstructive lung disease Current 08/17/2023 [id number]-Nmjuaczpp py Colonoscopy Current 02/11/2024 PROCEDURES Procedure Description [...] Regular Smoker Sex: Female CARE TEAM INFORMATION Denture Waxer Provider ID Role Location Phone [facility] [address] [place], [place] YARED RAGLAND [phone] NURSE PRACTITIONER [facility] [address], [place] [address] CANDIDO MCKAY [phone] NURSE PRACTITIONER [facility] [address], [place] [address] CALEB GRAY [phone] NURSE PRACTITIONER [facility] [address], [place] [address] INSURANCE PROVIDERS Payer Name Policy type / Coverage type Covered alliance party ID Policy [place] Medicaid [id number] [facility] Private Health Insurance [id number] MANOJ Do
--- OUTSIDE RECORDS SUMMARY | 2025-05-07 10:41 | XMS_ITS | Clinical Summary ---
Author Organization [facility] Address [address] [place] [address] Care Team Providers Care Hatchery Laborer Name Role Phone Unavailable Primary Care Provider [...] 2006 Dexa Scan (General) 2021 COVID-19 Vaccine ( - 2023-2 5 season) 2025 RSV Immunization or 60+ Years (1 - [...]
== END 2025-05-07 09:49 | disposition home or self-care (01) ==
LOC: ANHSURGERY 09:51
PROVIDERS: PCP Family Medicine; Visit Provider Surgery
DX: R94.31 Abnormal electrocardiogram [ECG] [EKG] (principal); K43.9 Ventral hernia without obstruction or gangrene; E78.5 Hyperlipidemia, unspecified; Z87.891 Personal history of nicotine dependence
CPT/HCPCS: 36415; 86850; 86900; 86901; 93005

== ENCOUNTER 2025-05-15 00:20 | Day surgery (SDC) | payer MEDICARE, MEDICAID, SELFPAY ==
[2025-05-02 08:31] VITALS: BMI 27.8
--- NOTE | 2025-05-02 08:39 | PC.NURSE ---
Report to the Outpatient Waiting Room, entrance under the green pavilion located off [facility], at time __10:00am on date __05/15/25 . Planned Procedure Time: __12:00pm .? Time changes happen often and if your time is changed the preop area will call you the afternoon before. - You and your visitor will be asked to self-screen and do not enter if you have any COVID symptoms. Please call surgeon if you need to reschedule. - A mask is optional within the hospital at this time. Patients may have clear liquids (water, carbonated beverages, clear teas, apple juice) until 3 hours prior to surgery with a maximum of 20 ounces. - No food from midnight until time of surgery and no smoking, or chewing tobacco (or any form of nicotine). No chewing gum, candy or mints. ( 0900am) Take only the following medications with a SIP of water on the morning of surgery: ___Inhaler and lamotrigine DO NOT STOP ANY OF YOUR OTHER PRESCRIPTION MEDICATIONS PRIOR TO SURGERY EXCEPT THE FOLLOWING Hold all vitamins and supplements for 3 days per anesthesiologist. Medications to discontinue per physician NONE Date to take last dose____NONE Please no make-up, nail algerian, hairspray, perfume, deodorant, or body powder the day of surgery.? No jewelry (including any body piercings) or valuables the day of surgery, leave them at home.? Please take a shower or bath the night before, or the morning of, surgery with an antibacterial soap.( GOLD DIAL) ? Wear comfortable, loose fitting clothing.? - Jewelry must be removed prior to entering the operating room.? Rings and piercings that are not removed may be cut off. - The hospital will not accept responsibility for valuables.? - Please leave all valuables, including medications, at home the day of surgery. If you are going home after surgery, a licensed auto parts delivery driver must drive you home.? - NO public transportation without another adult if you receive anesthesia. - We recommend that an adult stay with you for 24 hours following discharge. - We also recommend that you do not drive, make important decision, drink alcoholic beverages, or take any drugs that were not prescribed by your health care provider for at least 24 hours after your discharge time. Follow any additional instructions given to you from your surgeon. Telephone instructions given to ____Patient and asked if any additional questions and then verbalized understanding. Patient advised to call surgeon office or pre surgery nurse liaison [phone] if any additional questions.
[2025-05-15] VITALS (9 sets, daily range): BP systolic 91–145; BP diastolic 45–77; PULSE 68–94; RESP 16–20; TEMP 36.2–36.5; O2SAT 94–100
--- NOTE | 2025-05-15 10:11 | PM.IMHP ---
H&P: HPI History of Present Illness Date/Time: 05/15/25 10:11 Chief Complaint: ventral hernia Narrative: Lottie is a 69 y/o female who presents to the office at the request of Rolanda Silver DO for an evaluation of an abdominal bulge. Patient reports she had had a bulge for many years, but has increased in size. Patient denies pain and states she is tolerating a normal diet and having regular BM's. CT showed a supraumbilical ventral hernia with incarcerated defect measuring 3-4 cm. Review of Systems Review of Systems: All systems reviewed & are unremarkable except as noted in HPI and below PMFSH Past Medical History Medical History Positive colorectal cancer screening using Cologuard test Major depressive disorder DDD (degenerative disc disease) DJD (degenerative joint disease) COPD (chronic obstructive pulmonary disease) Arthritis Anxiety Surgical History Surgical History History of ankle surgery History of tonsillectomy Family History Family History Mother Diabetes mellitus Grandparent Diabetes mellitus Hypertension Heart disease Cerebrovascular accident Social History Social History Smoking packs per day: 2 Smoking cigarettes per day: 40.0 Years smoked: 30 Smoking pack-years: 60.00 Smoking status: Former smoker Tobacco type: cigarettes Smoking end date: 08/28/14 Alcohol intake: never Substance use: current Substance use type: other Other substance usage details: nicotine vapes Do You Feel Safe in your Home?: Yes Lack of Transportation: No Lack of Food: Never True Current Housing: I Have Housing Concerned About Future Housing: No Difficulty Paying Gas/Electric Bills: No Difficulty Paying for Meds: No Education: High School Diploma/GED Difficulty w/ Childcare or Family Care: No Living arrangements: with family Occupation/Education: retired Gender identity (if verbalized by the patient): Female Sexual Orientation (if Verbalized by the Patient): Straight or Heterosexual Spiritual care concerns: No Agree to blood products: Yes Meds Home Medications and Allergies Home Medications ?Medication ?Instructions ?Recorded ?Confirmed ?Type calcium carbonate (Calcium 500) 1,200 mg PO DAILY 01/05/23 05/02/25 History trazodone 100 mg tablet 200 mg PO HS PRN Insomnia 01/18/24 05/02/25 History pravastatin 80 mg tablet 80 mg PO DAILY #90 tabs 05/16/24 05/02/25 Rx fluticasone propionate 50 2 spray intranasal DAILY #48 grams 09/06/24 05/02/25 Rx mcg/actuation nasal spray,suspension (Flonase Allergy Relief) brexpiprazole 1 mg tablet (Rexulti) 1 mg PO DAILY 11/14/24 05/02/25 History lamotrigine 100 mg tablet 100 mg PO BID 11/14/24 05/02/25 History sertraline 50 mg tablet 50 mg PO Q24H 11/14/24 05/02/25 History nitrofurantoin macrocrystal 100 mg 100 mg PO QHS #90 caps 11/26/24 05/02/25 Rx capsule hydroxyzine HCl 25 mg tablet 25 mg PO DAILY 03/11/25 05/02/25 History ezetimibe 10 mg tablet 10 mg PO DAILY #90 tabs 03/20/25 05/02/25 Rx tiotropium bromide 2.5 2 puff inhalation DAILY #4 grams 03/20/25 05/02/25 Rx mcg/actuation mist for inhalation Allergies Allergy/AdvReac Type Severity Reaction Status Date / Time No Known Allergies Allergy Verified 05/02/25 08:28 Exam Const: General: cooperative, comfortable and no acute distress Resp: Auscultation: clear to auscultation bilaterally Cardio: Rate: regular rate Rhythm: regular rhythm GI: Inspection: normal to inspection, distended and visible herniation GI Palp: Yes abdominal tenderness, Yes Soft to palpation and Yes Hernia present Other: Supraumbilical ventral hernia with defect measuring 4 cm, incarcerated Assessment and Plan Assessment and plan (1) Incarcerated ventral hernia: Code(s): K43.6 - Other and unspecified ventral hernia with obstruction, without gangrene Status: Acute Assessment and Plan: patient is set up for robotic assisted repair with mesh
--- NOTE | 2025-05-15 10:14 | WPDHPUPDATE1 ---
History and Physical Update Update Date/Time: 05/15/25 10:14 History and Physical has been reviewed, including an updated exam of the patient. There are NO changes in the patient's condition. Risks, benefits, and alternatives have been discussed and questions answered. Patient agrees to proceed with procedure.
[2025-05-15] MEDS: ACETAMINOPHEN 500 MG TABLET 1000 MG PO (10:15)
[2025-05-15] MEDS: KETOROLAC 15 MG/ML VIAL (*BKC) IV PUSH (10:20)
--- NOTE | 2025-05-15 11:59 | WPDANESEPPF ---
Anes - Initial Pre Proc Eval Procedure: Operation Date: 05/15/25 12:00 Proposed Procedures p Robotic Assisted Incarcerated Ventral Hernia Repair with Mesh - Sheri Gordon MD Date/Time: 05/15/25 11:59 Surgeon: Sheri Gordon MD Pre Op Diagnosis: ventral hernia Patient Data Age: 70 Gender: F Height: 1.55 m Weight: 65.7 kg Last Vital Signs Temp 36.5 C 05/15/25 10:16 Pulse 86 05/15/25 10:16 Resp 20 05/15/25 10:16 BP 145/77 H 05/15/25 10:16 Pulse Ox 95 05/15/25 10:16 O2 Del Method Room Air 05/15/25 10:16 Allergies Allergy/AdvReac Type Severity Reaction Status Date / Time No Known Allergies Allergy Verified 05/15/25 10:32 Home Medications ?Medication ?Instructions ?Recorded ?Confirmed ?Type calcium carbonate (Calcium 500) 1,200 mg PO DAILY 01/05/23 05/15/25 History trazodone 100 mg tablet 200 mg PO HS PRN Insomnia 01/18/24 05/02/25 History pravastatin 80 mg tablet 80 mg PO DAILY #90 tabs 05/16/24 05/15/25 Rx fluticasone propionate 50 2 spray intranasal DAILY #48 grams 09/06/24 05/15/25 Rx mcg/actuation nasal spray,suspension (Flonase Allergy Relief) brexpiprazole 1 mg tablet (Rexulti) 1 mg PO DAILY 11/14/24 05/15/25 History lamotrigine 100 mg tablet 100 mg PO BID 11/14/24 05/15/25 History sertraline 50 mg tablet 50 mg PO Q24H 11/14/24 05/15/25 History nitrofurantoin macrocrystal 100 mg 100 mg PO QHS #90 caps 11/26/24 05/15/25 Rx capsule hydroxyzine HCl 25 mg tablet 25 mg PO DAILY 03/11/25 05/15/25 History ezetimibe 10 mg tablet 10 mg PO DAILY #90 tabs 03/20/25 05/15/25 Rx tiotropium bromide 2.5 2 puff inhalation DAILY #4 grams 03/20/25 05/15/25 Rx mcg/actuation mist for inhalation Patient hx anesthesia problems: none Family hx anesthesia problems: none Results Review: All pre-operative results and documents have been reviewed as part of the pre-operative evaluation. [facility] Past Medical History Medical History Positive colorectal cancer screening using Cologuard test Major depressive disorder DDD (degenerative disc disease) DJD (degenerative joint disease) COPD (chronic obstructive pulmonary disease) Arthritis Anxiety Surgical History Surgical History History of ankle surgery History of tonsillectomy Family History Family History Mother Diabetes mellitus Grandparent Diabetes mellitus Hypertension Heart disease Cerebrovascular accident Social History Social History Smoking packs per day: 2 Smoking cigarettes per day: 40.0 Years smoked: 30 Smoking pack-years: 60.00 Smoking status: Former smoker Tobacco type: cigarettes Smoking end date: 08/28/14 Alcohol intake: never Substance use: current Substance use type: other Other substance usage details: nicotine vapes Do You Feel Safe in your Home?: Yes Lack of Transportation: No Lack of Food: Never True Current Housing: I Have Housing Concerned About Future Housing: No Difficulty Paying Gas/Electric Bills: No Difficulty Paying for Meds: No Education: High School Diploma/GED Difficulty w/ Childcare or Family Care: No Living arrangements: with family Occupation/Education: retired Gender identity (if verbalized by the patient): Female Sexual Orientation (if Verbalized by the Patient): Straight or Heterosexual Spiritual care concerns: No Agree to blood products: Yes Anes - Eval Final PreProcedure Day of Procedure 05/15/25 11:59 Patient weight: overweight Heart: regular rate and rhythm Lungs: clear to auscultation Airway: Mallampati scale class II Neurological: alert and oriented Last oral intake: >/= 8 hours ASA classification: III Emergent: no Anesthetic plan: proceed Anesthesia type and monitoring: general ETT and standard monitoring Results Review: All pre-operative results and documents have been reviewed as part of the pre-operative evaluation. Informed Consent: The patient's anesthetic plan and its attendant risks and benefits were discussed with the patient/family/POA. Questions were solicited and answers provided to the satisfaction of the patient/family/POA.
[2025-05-15] MEDS: ceFAZolin 2 GM in SODIUM CHLORIDE 0.9% IV 50 ML 100 ML IVPB (12:16)
[2025-05-15] MEDS: BUPIVACAINE/EPINEPHRINE 0.5% 50 ML VIAL 30 ML INFILTRATE (13:01)
[2025-05-15] MEDS: LACTATED RINGERS 1,000 ML 30 ML IV CONT ×2 (15:02)
[2025-05-15] MEDS: fentaNYL CITRATE INJ (*CRX) 100 MCG/2 ML VIAL 25 MCG IV PUSH ×2 (15:15→15:45)
--- NOTE | 2025-05-15 15:15 | P.OP_ITS ---
Procedure Note - Detailed Date of Procedure 05/15/25 Pre-op Diagnosis incarcerated ventral hernia with defect measuring 4 cm, loss of intra-abdominal domain with lateralization of the rectus muscles Post-op Diagnosis Same Procedure Performed left-sided myofascial release, repair of incarcerated ventral hernia measuring 4 cm with mesh Surgeon Sheri Gordon MD Head Machinist MD [facility] Anesthesia General and Local Indications 70-year-old female with upper midline incarcerated ventral hernia. The patient reports this has been present for years and has steadily worsened. CT scan was significant for a upper midline incarcerated ventral hernia. Findings incarcerated epigastric ventral hernia with defect measuring 4 cm, incarcerated omentum Description of Procedure The patient was taken to the operating room and placed in the supine position. After adequate induction of general anesthesia, the patient was prepped and draped in the normal sterile fashion. A time-out was then done to verify the patient's identity, as well as the procedure being performed. I began by placing a 8 mm port in the left upper quadrant, this was done via the Optiview trocar under direct visualization. Once in the intra-abdominal cavity, the abdomen was insufflated with CO2 gas. After adequate pneumoperitoneum was achieved, the camera was placed into this trocar site and the abdomen was examined. There was noted to be an incarcerated epigastric ventral hernia with omentum incarcerated within the hernia. Under direct visualization, I placed a further 8 mm left mid abdominal port, as well as a 8 mm left lower abdominal port. The patient then positioned and the robot was docked to these trocar sites. I then scrubbed out and proceeded with the surgery at the robotic console. I began by reducing the omentum out of this hernia. This was done carefully with gentle traction and manual exterior pressure. Once the omentum was reduced, I examined the rest of the intra-abdominal contents which were noted to be unremarkable. At this point, I measured 6 cm lateral to the hernia defect. I then gained access by making a flap into the left retro muscular space. The 1st myofascial release was started with posterior rectus sheath released off the left rectus muscle. This dissection was performed all the way to the medial edge rectus muscle, the dissection was continued from the costal margin into the space Retzius. The upper medial aspect of the posterior sheath was then incised and we entered the preperitoneal space and transitioned to the contralateral retro muscular space. This was difficult and my partner Dr. Mesa was present and assisted with the crossover portion. At this point, it was noted that the patient had severe lateralization of right rectus muscle. Given the amount of diastasis, decision was made to stay in the preperitoneal plane on the contralateral side. The contralateral dissection was carried out to the fibers of the transversalis muscle. I then dissected the incarcerated preperitoneal fat from the epigastric ventral hernia defect. All contents were reduced leaving a approximately 4 cm defect. The patient also had significant diastasis in addition to the ventral defect. I then closed the 4 cm defect with 0 Stratafix suture. A 15 x [address] mesh was then placed in the flap. The mesh laid flat with no buckling. Once positioned it was noted to have good overlap of our hernia defect. I then sutured the mesh into place circumferentially using 2 0 V lock sutures x2. I then closed the posterior rectus sheath flap using a 2 0 V lock suture. The robot was then undocked and all ports were removed. All incisions were closed with 4-0 Monocryl subcuticular sutures. Dermabond was placed on all wounds. The patient t olerated the procedure well. She was extubated in the operating room postoperatively. She will be transferred to the recovery room in stable condition. Please note that Dr. Mesa was present for all critical portions of the procedure. His assistance was necessary to complete this case as it was very complicated given her anatomy. Estimated Blood Loss 10 Pathology None sent Condition Stable Disposition PACU [facility] Billing Surgery - Charge Forward: Surgery Billing
[2025-05-15] MEDS: oxyCODONE HCL (*CRX) 5 MG TAB IR PO (16:30)
== END 2025-05-15 17:18 | disposition home or self-care (01) ==
PROVIDERS: PCP Family Medicine; Visit Provider Surgery
PROC: (CPT 49594; principal; 2025-05-15 12:00)
DX: K43.6 Other and unspecified ventral hernia with obstruction, without gangrene (principal); J44.9 Chronic obstructive pulmonary disease, unspecified; F41.9 Anxiety disorder, unspecified; F32.9 Major depressive disorder, single episode, unspecified; M19.90 Unspecified osteoarthritis, unspecified site; M51.9 Unspecified thoracic, thoracolumbar and lumbosacral intervertebral disc disorder; F17.290 Nicotine dependence, other tobacco product, uncomplicated; Z79.51 Long term (current) use of inhaled steroids; Z98.890 Other specified postprocedural states; Z82.49 Family history of ischemic heart disease and other diseases of the circulatory system
CPT/HCPCS: 49594; J0690; A9270; C1781; J1100; J1885; J2003; J2405; J2704; J3010; J7120